=== PATIENT | male | born 1945 | race Caucasian/White ===

== ENCOUNTER 2017-07-16 22:19 | Inpatient (IN) | payer BC, MEDICAID ==
[~2017-07-16] VITALS: Ht 172.7 cm; Wt 68.6 kg
[~2017-07-16 22:19] MED LIST: HYDR-3498 PO
[2017-07-16] MEDS ORDERED: SOD CHLORIDE 0.9% 1,000 ML IV STA (23:43)
[2017-07-16] MEDS ORDERED: ONDANSETRON 4 MG INJ IV STA (23:43)
--- NOTE | 2017-07-16 23:58 | ERD ---
ER Documentation Chief Complaint Chief Complaint c/o having no bm x3 days HPI The patient is a 71-year-old male, presenting to the ER because he is constipated for the last 3 days, abdominal pain for 1 week, decreased appetite, polydipsia, polyuria. He denies fever, chills, neck pain, chest pain, vomiting , dysuria. He is a diabetic however he has not been taking any medication for more than a year. He does not smoke nor drink Past medical history: History of colon cancer, diabetes mellitus Past surgical history: Right colectomy ROS All systems reviewed and are negative except as per history of present illness. Medications Home Meds Active Scripts Hydrocodone Bit-Acetaminophen* ([place]*) 5-325 Mg Tab, 1 TAB PO Q4H Y for PAIN LEVEL 6-10, #20 TAB Prov:RONAL VELASCO 10/22/15 Allergies Allergies: Coded Allergies: No Known Allergy (Unverified , 07/01/15) PMhx/Soc History of Surgery: No Anesthesia Reaction: No Hx Neurological Disorder: No Hx Respiratory Disorders: No Hx Cardiac Disorders: No Hx Psychiatric Problems: No Hx Miscellaneous Medical Probl: No Hx Alcohol Use: No Hx Substance Use: No Hx Tobacco Use: Yes (QUIT 1 1/2 YEAR AGO) Physical Exam Vitals Vital Signs Date Time Temp Pulse Resp B/P Pulse Ox O2 Delivery O2 Flow Rate FiO2 07/16/17 22:30 97.0 107 18 120/81 98 Physical Exam Const: No acute distress. Head: Atraumatic. Eyes: Normal Conjunctiva. ENT: Normal External Ears, Nose and Mouth. Neck: Full range of motion. No meningismus. Resp: Clear to auscultation bilaterally. Cardio: Regular rate and rhythm. Abd: Soft, non distended, normal bowel sounds, minimal vague and diffuse abdominal tenderness, no rigidity, rebound, CVA tenderness Skin: No petechiae or rashes. Back: No midline or flank tenderness. Ext: No cyanosis, or edema. Neur: Awake and alert. No focal deficit Psych: Normal Mood and Affect. Result Diagram: 07/17/17 0000 07/17/17 0000 Results 24 hrs Laboratory Tests Test 07/17/17 00:00 07/17/17 00:01 07/17/17 00:59 07/17/17 01:41 White Blood Count 7.510^3/ul Red Blood Count 5.8110^6/ul Hemoglobin 15.7g/dl Hematocrit 48.4% Mean Corpuscular Volume 83.3fl Mean Corpuscular Hemoglobin 27.0pg Mean Corpuscular Hemoglobin Concent 32.4g/dl Red Cell Distribution Width 12.9% Platelet Count 50861^3/UL Mean Platelet Volume 12.5fl Neutrophils % 63.9% Lymphocytes % 25.2% Monocytes % 8.8% Eosinophils % 0.3% Basophils % 1.5% Nucleated Red Blood Cells % 0.0/100WBC Neutrophils # 4.810^3/ul Lymphocytes # 1.910^3/ul Monocytes # 0.710^3/ul Eosinophils # 0.010^3/ul Basophils # 0.110^3/ul Nucleated Red Blood Cells # 0.010^3/ul Urine Color STRAW Urine Clarity CLEAR Urine pH 5.0 Urine Specific [place] 1.028 Urine Ketones 2+mg/dL Urine Nitrite NEGATIVEmg/dL Urine Bilirubin NEGATIVEmg/dL Urine Urobilinogen NEGATIVEmg/dL Urine Leukocyte Esterase NEGATIVELeu/ul Urine Microscopic RBC 2/HPF Urine Microscopic WBC 1/HPF Urine Hemoglobin 1+mg/dL Urine Glucose 3+mg/dL Urine Total Protein 1+mg/dl Sodium Level 138mmol/L Potassium Level 5.0mmol/L Chloride Level 97mmol/L Carbon Dioxide Level 14mmol/L Anion Gap 32 Blood Urea Nitrogen 19mg/dl Creatinine 1.15mg/dl Glucose Level 605mg/dl Calcium Level 10.0mg/dl Total Bilirubin 0.3mg/dl Direct Bilirubin 0.00mg/dl Indirect Bilirubin 0.3mg/dl Aspartate Amino Transf (AST/SGOT) 37IU/L Alanine Aminotransferase (ALT/SGPT) 70IU/L Alkaline Phosphatase 110IU/L Total Protein 8.6g/dl Albumin 4.7g/dl Globulin 3.90g/dl Albumin/Globulin Ratio 1.20 Lipase 638U/L Prothrombin Time 12.9Sec Prothrombin Time Ratio 1.0 INR International Normalized Ratio 0.97 Activated Partial Thromboplast Time 21.8Sec Blood Gas Specimen Source Blood arterial Arterial Blood Date Drawn 07/17/2017 1:25:58 AM Arterial Blood pH (Temp corrected) 7.244 Arterial Blood pCO2 (Temp correct) 23.9mmhg Arterial Blood pO2 (Temp corrected) 97.4mmHG Arterial Blood HCO3 10.1mmol/L Arterial Blood Base Excess -15.1mmol/L Arterial Blood Oxygen Saturation 97.1mmHG Dillon Test ACCEPTAB Arterial Blood Gas Puncture Site Right Radial Arterial Blood Carboxyhemoglobin 0.3% Arterial Blood Methemoglobin 0.4% Blood Gas A-a O2 Differential 23.7mmHg Oxyhemoglobin Percent 96.4% Total Hemoglobin 16.0g/dl Blood Gas Temperature 37.0C Blood Gas Modality ROOM AIR FiO2 21.0% Blood Gas Critical Value Read Back Real VALADEZ MD Blood Gas Notified Whom MG Blood Gas Notified Time 07/17/2017 1:32:19 AM Bedside Glucose 427mg/dL Test 07/17/17 01:50 07/17/17 03:35 Lactic Acid Level 1.9mmol/L Bedside Glucose 268mg/dL Current Medications Medications (Trade) Dose Ordered Sig/Cari Route PRN Reason Start Time Stop Time Status Last Admin Dose Admin Sodium Chloride (NS) 1,000 ml @ 1,000 mls/hr Q1H STAT IV 07/16/17 23:43 07/17/17 00:42 DC 07/17/17 00:05 Ondansetron HCl 4 mg 4 mg ONCE STAT IV 07/16/17 23:43 07/16/17 23:44 DC 07/17/17 00:14 Sodium Chloride 2,070 ml @ 2,070 mls/hr BOLUS X1 ONCE IV 07/17/17 01:30 07/17/17 02:29 DC 07/17/17 01:36 Insulin Human Regular/Sodium Chloride (Novolin-R/NS) 100 ml @ 6.68 mls/hr DKA PROTOCOL IV 07/17/17 01:30 07/17/17 01:51 Diagnostic Test (Pha) (Accu-Chek) 1 ea Q1H XX 07/17/17 01:30 07/17/17 03:58 IV Flush 10 ml 10 ml STK-MED ONCE .ROUTE 07/17/17 01:20 07/17/17 01:21 DC 07/17/17 02:10 Sodium Chloride (NS) 100 ml @ ud STK-MED ONCE .ROUTE 07/17/17 01:20 07/17/17 01:21 DC 07/17/17 02:10 Iodixanol (Visipaque Locm) 100 ml STK-MED ONCE .ROUTE 07/17/17 01:20 07/17/17 01:21 DC 07/17/17 02:10 Dextrose (D50w Syringe) 50 ml Q15M PRN IV For BS 50 or less 07/17/17 03:00 Dextrose 25 ml 25 ml Q15M PRN IV BS between 50-70 07/17/17 03:00 Sodium Chloride 1,000 ml @ 1,000 mls/hr Q1H IV 07/17/17 02:42 07/17/17 03:41 DC 07/17/17 02:42 Insulin Human Regular/Sodium Chloride (Novolin-R/NS) 100 ml @ 6.68 mls/hr DKA PROTOCOL IV 07/17/17 03:00 Diagnostic Test (Pha) (Accu-Chek) 1 ea Q1H XX 07/17/17 03:00 Miscellaneous Information HYPOGLYCEMIA TREATMENT HYPOGLYCEM PROTOCOL PRN XX Hypoglycemia (BS < 70) 07/17/17 03:00 Sodium Chloride (NS) 1,000 ml @ 125 mls/hr Q8H IV 07/17/17 02:47 Ondansetron HCl (Zofran Inj) 4 mg Q6H PRN IV NAUSEA AND/OR VOMITING 07/17/17 03:00 Acetaminophen (Tylenol Tab) 650 mg Q6H PRN PO PAIN LEVEL 1-3 OR FEVER 07/17/17 03:00 Acetaminophen/ Hydrocodone Bitart ([place] (5/325)) 1 tab Q6H PRN PO PAIN LEVEL 4-6 07/17/17 03:00 Acetaminophen/ Hydrocodone Bitart ([place] (5/325)) 2 tab Q6H PRN PO PAIN LEVEL 7-10 07/17/17 03:00 Morphine Sulfate (morphine) 2 mg Q4H PRN IV PAIN LEVEL 7-10 07/17/17 03:00 Docusate Sodium (Colace) 100 mg Q12H PRN PO CONSTIPATION 07/17/17 03:00 Magnesium Hydroxide (Milk Of Mag) 30 ml DAILY PRN PO CONSTIPATION 07/17/17 03:00 Bisacodyl (Dulcolax Supp) 10 mg DAILY PRN [place] CONSTIPATION 07/17/17 03:00 Famotidine (Pepcid) 20 mg Q12 PO 07/17/17 09:00 Procedures/MDM [place] [address] Radiology Main Line: [phone] DIAGNOSTIC IMAGING REPORT Patient: VISHAL ZAMORA : 1945 Age: 71 Sex: M MR #: [id number] DOS: 07/16/17 2343 Ordering MD: KATE LANCASTER PA-C Location: E/R Room/Bed: PROCEDURE: CT abdomen and pelvis with intravenous contrast. CLINICAL INDICATION: Pain. TECHNIQUE: CT of the abdomen/pelvis was performed utilizing axial images with reconstructions in sagittal and coronal planes after uneventful administration of 100 cc Omnipaque 300. The administered radiation dose is CTDI 8.7 mGy, DLP 551 mGy-cm. One or more of the following dose reduction techniques were used: automated exposure control, adjustment of the mA and/or kV according to patient size and/or use of iterative reconstruction technique. COMPARISON: No pertinent prior examinations were submitted for comparison. FINDINGS: Visualized Chest: The visualized lung bases are clear. Abdomen: The spleen, pancreas, gallbladder,and adrenal glands are unremarkable. The liver is markedly, diffusely decreased in attenuation, compatible with hepatic steatosis. The kidneys are without hydronephrosis. No definite urinary calculi are seen. Prior right hemicolectomy is noted. There is no evidence of bowel obstruction. No intra-abdominal free air is seen. There is no evidence of intra-abdominal adenopathy or free fluid. Pelvis: There is no evidence of pelvic adenopathy or free fluid. The bladder is unremarkable. There are small bilateral fat containing inguinal hernias. The prostate is enlarged, measuring up to 5.9 cm in transverse dimension. Osseous structures: Unremarkable. IMPRESSION: No acute findings. Hepatic steatosis. Small bilateral fat containing inguinal hernias. Enlarged prostate. RPTAT: HIKT .Jose Haque MD, MD Date Time Electronically viewed and signed by .Jose Haque MD, on 07/17/2017 03:00 .T/ CC: KATE LANCASTER PA-C [place] [address] Radiology Main Line: [phone] DIAGNOSTIC IMAGING REPORT Patient: VISHAL ZAMORA : 1945 Age: 71 Sex: M MR #: [id number] DOS: 07/17/17 0102 Ordering MD: DILIA VALADEZ MD Location: E/R Room/Bed: PROCEDURE: Chest. CLINICAL INDICATION: Chest pain. TECHNIQUE: Single frontal view of the chest was obtained. COMPARISON: 10/11/2015. FINDINGS: The cardiac silhouette is within normal limits. The aortic arch is calcified. There is no focal consolidation, vascular congestion or pleural effusion. There is no pneumothorax. IMPRESSION: No evidence for active cardiopulmonary disease. Aortic atherosclerosis. .Devonte Patterson MD, MD Date Time Electronically viewed and signed by .Devonte Patterson MD, MD on 07/17/2017 03:24 .T/ CC: DILIA VALADEZ MD EKG: Read by emergency physician Rate/Rhythm: Normal Sinus Rhythm 93 beats/min QRS, ST, T-waves: No ST elevation, no T inversion, SA Impression: Abnormal EKG abg ph 7.24, pco2 24, po2 97 on 21% MEDICAL MAKING DECISION: The patient is a 71-year-old male, presenting with acute DKA, acute pancreatitis. He was treated with normosaline 30 mL/kg IV, Insulin drip 0.1 U/kg/h The differential diagnoses considered include but are not limited to cholelithiasis, cholecystitis, cystitis, pancreatitis, hepatitis, gastritis, peptic ulcer disease, gastric ulcer, appendicitis, diverticulitis, cholangitis, choledocholithiasis, partial small bowel obstruction. Critical Care: Time: 35 minutes excluding all billable procedures. Treatments/Evaluations: Close monitoring and treatment of unstable vital signs, cardiorespiratory, and neurologic status, while maintaining tight balance of fluid, respiratory, and cardiac interventions. Departure Diagnosis: Primary Impression: DKA (diabetic ketoacidoses) Additional Impression: Pancreatitis Condition: Critical Comments I discussed the findings with the patient. I discussed the patient with his physician Dr. Montano at 2:10 am who was made aware of the lab, the treatment, the patient condition. The patient is admitted to ICU Disclaimer: Inadvertent spelling and grammatical errors are likely due to EHR/ dictation software use and do not reflect on the overall quality of patient care. Also, please note that the electronic time recorded on this note does not necessarily reflect the actual time of the patient encounter. DILIA VALADEZ MD Jul 16, 2017 23:58
--- NOTE | 2017-07-16 23:58 | ERD ---
ER Documentation Chief Complaint Chief Complaint c/o having no bm x3 days HPI The patient is a 71-year-old male, presenting to the ER because he is constipated for the last 3 days, abdominal pain for 1 week, decreased appetite, polydipsia, polyuria. He denies fever, chills, neck pain, chest pain, vomiting , dysuria. He is a diabetic however he has not been taking any medication for more than a year. He does not smoke nor drink Past medical history: History of colon cancer, diabetes mellitus Past surgical history: Right colectomy ROS All systems reviewed and are negative except as per history of present illness. Medications Home Meds Active Scripts Hydrocodone Bit-Acetaminophen* ([place]*) 5-325 Mg Tab, 1 TAB PO Q4H Y for PAIN LEVEL 6-10, #20 TAB Prov:RONAL VELASCO 10/22/15 Allergies Allergies: Coded Allergies: No Known Allergy (Unverified , 07/01/15) PMhx/Soc History of Surgery: No Anesthesia Reaction: No Hx Neurological Disorder: No Hx Respiratory Disorders: No Hx Cardiac Disorders: No Hx Psychiatric Problems: No Hx Miscellaneous Medical Probl: No Hx Alcohol Use: No Hx Substance Use: No Hx Tobacco Use: Yes (QUIT 1 1/2 YEAR AGO) Physical Exam Vitals Vital Signs Date Time Temp Pulse Resp B/P Pulse Ox O2 Delivery O2 Flow Rate FiO2 07/16/17 22:30 97.0 107 18 120/81 98 Physical Exam Const: No acute distress. Head: Atraumatic. Eyes: Normal Conjunctiva. ENT: Normal External Ears, Nose and Mouth. Neck: Full range of motion. No meningismus. Resp: Clear to auscultation bilaterally. Cardio: Regular rate and rhythm. Abd: Soft, non distended, normal bowel sounds, minimal vague and diffuse abdominal tenderness, no rigidity, rebound, CVA tenderness Skin: No petechiae or rashes. Back: No midline or flank tenderness. Ext: No cyanosis, or edema. Neur: Awake and alert. No focal deficit Psych: Normal Mood and Affect. Result Diagram: 07/17/17 0000 07/17/17 0000 Results 24 hrs Laboratory Tests Test 07/17/17 00:00 07/17/17 00:01 07/17/17 00:59 07/17/17 01:41 White Blood Count 7.510^3/ul Red Blood Count 5.8110^6/ul Hemoglobin 15.7g/dl Hematocrit 48.4% Mean Corpuscular Volume 83.3fl Mean Corpuscular Hemoglobin 27.0pg Mean Corpuscular Hemoglobin Concent 32.4g/dl Red Cell Distribution Width 12.9% Platelet Count 08973^3/UL Mean Platelet Volume 12.5fl Neutrophils % 63.9% Lymphocytes % 25.2% Monocytes % 8.8% Eosinophils % 0.3% Basophils % 1.5% Nucleated Red Blood Cells % 0.0/100WBC Neutrophils # 4.810^3/ul Lymphocytes # 1.910^3/ul Monocytes # 0.710^3/ul Eosinophils # 0.010^3/ul Basophils # 0.110^3/ul Nucleated Red Blood Cells # 0.010^3/ul Urine Color STRAW Urine Clarity CLEAR Urine pH 5.0 Urine Specific [place] 1.028 Urine Ketones 2+mg/dL Urine Nitrite NEGATIVEmg/dL Urine Bilirubin NEGATIVEmg/dL Urine Urobilinogen NEGATIVEmg/dL Urine Leukocyte Esterase NEGATIVELeu/ul Urine Microscopic RBC 2/HPF Urine Microscopic WBC 1/HPF Urine Hemoglobin 1+mg/dL Urine Glucose 3+mg/dL Urine Total Protein 1+mg/dl Sodium Level 138mmol/L Potassium Level 5.0mmol/L Chloride Level 97mmol/L Carbon Dioxide Level 14mmol/L Anion Gap 32 Blood Urea Nitrogen 19mg/dl Creatinine 1.15mg/dl Glucose Level 605mg/dl Calcium Level 10.0mg/dl Total Bilirubin 0.3mg/dl Direct Bilirubin 0.00mg/dl Indirect Bilirubin 0.3mg/dl Aspartate Amino Transf (AST/SGOT) 37IU/L Alanine Aminotransferase (ALT/SGPT) 70IU/L Alkaline Phosphatase 110IU/L Total Protein 8.6g/dl Albumin 4.7g/dl Globulin 3.90g/dl Albumin/Globulin Ratio 1.20 Lipase 638U/L Prothrombin Time 12.9Sec Prothrombin Time Ratio 1.0 INR International Normalized Ratio 0.97 Activated Partial Thromboplast Time 21.8Sec Blood Gas Specimen Source Blood arterial Arterial Blood Date Drawn 07/17/2017 1:25:58 AM Arterial Blood pH (Temp corrected) 7.244 Arterial Blood pCO2 (Temp correct) 23.9mmhg Arterial Blood pO2 (Temp corrected) 97.4mmHG Arterial Blood HCO3 10.1mmol/L Arterial Blood Base Excess -15.1mmol/L Arterial Blood Oxygen Saturation 97.1mmHG Dillon Test ACCEPTAB Arterial Blood Gas Puncture Site Right Radial Arterial Blood Carboxyhemoglobin 0.3% Arterial Blood Methemoglobin 0.4% Blood Gas A-a O2 Differential 23.7mmHg Oxyhemoglobin Percent 96.4% Total Hemoglobin 16.0g/dl Blood Gas Temperature 37.0C Blood Gas Modality ROOM AIR FiO2 21.0% Blood Gas Critical Value Read Back Real VALADEZ MD Blood Gas Notified Whom MG Blood Gas Notified Time 07/17/2017 1:32:19 AM Bedside Glucose 427mg/dL Test 07/17/17 01:50 07/17/17 03:35 Lactic Acid Level 1.9mmol/L Bedside Glucose 268mg/dL Current Medications Medications (Trade) Dose Ordered Sig/Cari Route PRN Reason Start Time Stop Time Status Last Admin Dose Admin Sodium Chloride (NS) 1,000 ml @ 1,000 mls/hr Q1H STAT IV 07/16/17 23:43 07/17/17 00:42 DC 07/17/17 00:05 Ondansetron HCl 4 mg 4 mg ONCE STAT IV 07/16/17 23:43 07/16/17 23:44 DC 07/17/17 00:14 Sodium Chloride 2,070 ml @ 2,070 mls/hr BOLUS X1 ONCE IV 07/17/17 01:30 07/17/17 02:29 DC 07/17/17 01:36 Insulin Human Regular/Sodium Chloride (Novolin-R/NS) 100 ml @ 6.68 mls/hr DKA PROTOCOL IV 07/17/17 01:30 07/17/17 01:51 Diagnostic Test (Pha) (Accu-Chek) 1 ea Q1H XX 07/17/17 01:30 07/17/17 03:58 IV Flush 10 ml 10 ml STK-MED ONCE .ROUTE 07/17/17 01:20 07/17/17 01:21 DC 07/17/17 02:10 Sodium Chloride (NS) 100 ml @ ud STK-MED ONCE .ROUTE 07/17/17 01:20 07/17/17 01:21 DC 07/17/17 02:10 Iodixanol (Visipaque Locm) 100 ml STK-MED ONCE .ROUTE 07/17/17 01:20 07/17/17 01:21 DC 07/17/17 02:10 Dextrose (D50w Syringe) 50 ml Q15M PRN IV For BS 50 or less 07/17/17 03:00 Dextrose 25 ml 25 ml Q15M PRN IV BS between 50-70 07/17/17 03:00 Sodium Chloride 1,000 ml @ 1,000 mls/hr Q1H IV 07/17/17 02:42 07/17/17 03:41 DC 07/17/17 02:42 Insulin Human Regular/Sodium Chloride (Novolin-R/NS) 100 ml @ 6.68 mls/hr DKA PROTOCOL IV 07/17/17 03:00 Diagnostic Test (Pha) (Accu-Chek) 1 ea Q1H XX 07/17/17 03:00 Miscellaneous Information HYPOGLYCEMIA TREATMENT HYPOGLYCEM PROTOCOL PRN XX Hypoglycemia (BS < 70) 07/17/17 03:00 Sodium Chloride (NS) 1,000 ml @ 125 mls/hr Q8H IV 07/17/17 02:47 Ondansetron HCl (Zofran Inj) 4 mg Q6H PRN IV NAUSEA AND/OR VOMITING 07/17/17 03:00 Acetaminophen (Tylenol Tab) 650 mg Q6H PRN PO PAIN LEVEL 1-3 OR FEVER 07/17/17 03:00 Acetaminophen/ Hydrocodone Bitart ([place] (5/325)) 1 tab Q6H PRN PO PAIN LEVEL 4-6 07/17/17 03:00 Acetaminophen/ Hydrocodone Bitart ([place] (5/325)) 2 tab Q6H PRN PO PAIN LEVEL 7-10 07/17/17 03:00 Morphine Sulfate (morphine) 2 mg Q4H PRN IV PAIN LEVEL 7-10 07/17/17 03:00 Docusate Sodium (Colace) 100 mg Q12H PRN PO CONSTIPATION 07/17/17 03:00 Magnesium Hydroxide (Milk Of Mag) 30 ml DAILY PRN PO CONSTIPATION 07/17/17 03:00 Bisacodyl (Dulcolax Supp) 10 mg DAILY PRN [place] CONSTIPATION 07/17/17 03:00 Famotidine (Pepcid) 20 mg Q12 PO 07/17/17 09:00 Procedures/MDM [place] [address] Radiology Main Line: [phone] DIAGNOSTIC IMAGING REPORT Patient: VISHAL ZAMORA : 1945 Age: 71 Sex: M MR #: [id number] DOS: 07/16/17 2343 Ordering MD: KATE LANCASTER PA-C Location: E/R Room/Bed: PROCEDURE: CT abdomen and pelvis with intravenous contrast. CLINICAL INDICATION: Pain. TECHNIQUE: CT of the abdomen/pelvis was performed utilizing axial images with reconstructions in sagittal and coronal planes after uneventful administration of 100 cc Omnipaque 300. The administered radiation dose is CTDI 8.7 mGy, DLP 551 mGy-cm. One or more of the following dose reduction techniques were used: automated exposure control, adjustment of the mA and/or kV according to patient size and/or use of iterative reconstruction technique. COMPARISON: No pertinent prior examinations were submitted for comparison. FINDINGS: Visualized Chest: The visualized lung bases are clear. Abdomen: The spleen, pancreas, gallbladder,and adrenal glands are unremarkable. The liver is markedly, diffusely decreased in attenuation, compatible with hepatic steatosis. The kidneys are without hydronephrosis. No definite urinary calculi are seen. Prior right hemicolectomy is noted. There is no evidence of bowel obstruction. No intra-abdominal free air is seen. There is no evidence of intra-abdominal adenopathy or free fluid. Pelvis: There is no evidence of pelvic adenopathy or free fluid. The bladder is unremarkable. There are small bilateral fat containing inguinal hernias. The prostate is enlarged, measuring up to 5.9 cm in transverse dimension. Osseous structures: Unremarkable. IMPRESSION: No acute findings. Hepatic steatosis. Small bilateral fat containing inguinal hernias. Enlarged prostate. RPTAT: HIKT .Jose Hauqe MD, MD Date Time Electronically viewed and signed by .Jose Haque MD, on 07/17/2017 03:00 .T/ CC: KATE LANCASTER PA-C [place] [address] Radiology Main Line: [phone] DIAGNOSTIC IMAGING REPORT Patient: VISHAL ZAMORA : 1945 Age: 71 Sex: M MR #: [id number] DOS: 07/17/17 0102 Ordering MD: DILIA VALADEZ MD Location: E/R Room/Bed: PROCEDURE: Chest. CLINICAL INDICATION: Chest pain. TECHNIQUE: Single frontal view of the chest was obtained. COMPARISON: 10/11/2015. FINDINGS: The cardiac silhouette is within normal limits. The aortic arch is calcified. There is no focal consolidation, vascular congestion or pleural effusion. There is no pneumothorax. IMPRESSION: No evidence for active cardiopulmonary disease. Aortic atherosclerosis. .Devonte Patterson MD, MD Date Time Electronically viewed and signed by .Devonte Patterson MD, MD on 07/17/2017 03:24 .T/ CC: DILIA VALADEZ MD EKG: Read by emergency physician Rate/Rhythm: Normal Sinus Rhythm 93 beats/min QRS, ST, T-waves: No ST elevation, no T inversion, SA Impression: Abnormal EKG abg ph 7.24, pco2 24, po2 97 on 21% MEDICAL MAKING DECISION: The patient is a 71-year-old male, presenting with acute DKA, acute pancreatitis. He was treated with normosaline 30 mL/kg IV, Insulin drip 0.1 U/kg/h The differential diagnoses considered include but are not limited to cholelithiasis, cholecystitis, cystitis, pancreatitis, hepatitis, gastritis, peptic ulcer disease, gastric ulcer, appendicitis, diverticulitis, cholangitis, choledocholithiasis, partial small bowel obstruction. Critical Care: Time: 35 minutes excluding all billable procedures. Treatments/Evaluations: Close monitoring and treatment of unstable vital signs, cardiorespiratory, and neurologic status, while maintaining tight balance of fluid, respiratory, and cardiac interventions. Departure Diagnosis: Primary Impression: DKA (diabetic ketoacidoses) Additional Impression: Pancreatitis Condition: Critical Comments I discussed the findings with the patient. I discussed the patient with his physician Dr. Montano at 2:10 am who was made aware of the lab, the treatment, the patient condition. The patient is admitted to ICU Disclaimer: Inadvertent spelling and grammatical errors are likely due to EHR/ dictation software use and do not reflect on the overall quality of patient care. Also, please note that the electronic time recorded on this note does not necessarily reflect the actual time of the patient encounter. DILIA VALADEZ MD Jul 16, 2017 23:58
--- NOTE | 2017-07-16 23:58 | ERD ---
ER Documentation Chief Complaint Chief Complaint c/o having no bm x3 days HPI The patient is a 71-year-old male, presenting to the ER because he is constipated for the last 3 days, abdominal pain for 1 week, decreased appetite, polydipsia, polyuria. He denies fever, chills, neck pain, chest pain, vomiting , dysuria. He is a diabetic however he has not been taking any medication for more than a year. He does not smoke nor drink Past medical history: History of colon cancer, diabetes mellitus Past surgical history: Right colectomy ROS All systems reviewed and are negative except as per history of present illness. Medications Home Meds Active Scripts Hydrocodone Bit-Acetaminophen* ([place]*) 5-325 Mg Tab, 1 TAB PO Q4H Y for PAIN LEVEL 6-10, #20 TAB Prov:RONAL VELASCO 10/22/15 Allergies Allergies: Coded Allergies: No Known Allergy (Unverified , 07/01/15) PMhx/Soc History of Surgery: No Anesthesia Reaction: No Hx Neurological Disorder: No Hx Respiratory Disorders: No Hx Cardiac Disorders: No Hx Psychiatric Problems: No Hx Miscellaneous Medical Probl: No Hx Alcohol Use: No Hx Substance Use: No Hx Tobacco Use: Yes (QUIT 1 1/2 YEAR AGO) Physical Exam Vitals Vital Signs Date Time Temp Pulse Resp B/P Pulse Ox O2 Delivery O2 Flow Rate FiO2 07/16/17 22:30 97.0 107 18 120/81 98 Physical Exam Const: No acute distress. Head: Atraumatic. Eyes: Normal Conjunctiva. ENT: Normal External Ears, Nose and Mouth. Neck: Full range of motion. No meningismus. Resp: Clear to auscultation bilaterally. Cardio: Regular rate and rhythm. Abd: Soft, non distended, normal bowel sounds, minimal vague and diffuse abdominal tenderness, no rigidity, rebound, CVA tenderness Skin: No petechiae or rashes. Back: No midline or flank tenderness. Ext: No cyanosis, or edema. Neur: Awake and alert. No focal deficit Psych: Normal Mood and Affect. Result Diagram: 07/17/17 0000 07/17/17 0000 Results 24 hrs Laboratory Tests Test 07/17/17 00:00 07/17/17 00:01 07/17/17 00:59 07/17/17 01:41 White Blood Count 7.510^3/ul Red Blood Count 5.8110^6/ul Hemoglobin 15.7g/dl Hematocrit 48.4% Mean Corpuscular Volume 83.3fl Mean Corpuscular Hemoglobin 27.0pg Mean Corpuscular Hemoglobin Concent 32.4g/dl Red Cell Distribution Width 12.9% Platelet Count 48445^3/UL Mean Platelet Volume 12.5fl Neutrophils % 63.9% Lymphocytes % 25.2% Monocytes % 8.8% Eosinophils % 0.3% Basophils % 1.5% Nucleated Red Blood Cells % 0.0/100WBC Neutrophils # 4.810^3/ul Lymphocytes # 1.910^3/ul Monocytes # 0.710^3/ul Eosinophils # 0.010^3/ul Basophils # 0.110^3/ul Nucleated Red Blood Cells # 0.010^3/ul Urine Color STRAW Urine Clarity CLEAR Urine pH 5.0 Urine Specific [place] 1.028 Urine Ketones 2+mg/dL Urine Nitrite NEGATIVEmg/dL Urine Bilirubin NEGATIVEmg/dL Urine Urobilinogen NEGATIVEmg/dL Urine Leukocyte Esterase NEGATIVELeu/ul Urine Microscopic RBC 2/HPF Urine Microscopic WBC 1/HPF Urine Hemoglobin 1+mg/dL Urine Glucose 3+mg/dL Urine Total Protein 1+mg/dl Sodium Level 138mmol/L Potassium Level 5.0mmol/L Chloride Level 97mmol/L Carbon Dioxide Level 14mmol/L Anion Gap 32 Blood Urea Nitrogen 19mg/dl Creatinine 1.15mg/dl Glucose Level 605mg/dl Calcium Level 10.0mg/dl Total Bilirubin 0.3mg/dl Direct Bilirubin 0.00mg/dl Indirect Bilirubin 0.3mg/dl Aspartate Amino Transf (AST/SGOT) 37IU/L Alanine Aminotransferase (ALT/SGPT) 70IU/L Alkaline Phosphatase 110IU/L Total Protein 8.6g/dl Albumin 4.7g/dl Globulin 3.90g/dl Albumin/Globulin Ratio 1.20 Lipase 638U/L Prothrombin Time 12.9Sec Prothrombin Time Ratio 1.0 INR International Normalized Ratio 0.97 Activated Partial Thromboplast Time 21.8Sec Blood Gas Specimen Source Blood arterial Arterial Blood Date Drawn 07/17/2017 1:25:58 AM Arterial Blood pH (Temp corrected) 7.244 Arterial Blood pCO2 (Temp correct) 23.9mmhg Arterial Blood pO2 (Temp corrected) 97.4mmHG Arterial Blood HCO3 10.1mmol/L Arterial Blood Base Excess -15.1mmol/L Arterial Blood Oxygen Saturation 97.1mmHG Dillon Test ACCEPTAB Arterial Blood Gas Puncture Site Right Radial Arterial Blood Carboxyhemoglobin 0.3% Arterial Blood Methemoglobin 0.4% Blood Gas A-a O2 Differential 23.7mmHg Oxyhemoglobin Percent 96.4% Total Hemoglobin 16.0g/dl Blood Gas Temperature 37.0C Blood Gas Modality ROOM AIR FiO2 21.0% Blood Gas Critical Value Read Back Real VALADEZ MD Blood Gas Notified Whom MG Blood Gas Notified Time 07/17/2017 1:32:19 AM Bedside Glucose 427mg/dL Test 07/17/17 01:50 07/17/17 03:35 Lactic Acid Level 1.9mmol/L Bedside Glucose 268mg/dL Current Medications Medications (Trade) Dose Ordered Sig/Cari Route PRN Reason Start Time Stop Time Status Last Admin Dose Admin Sodium Chloride (NS) 1,000 ml @ 1,000 mls/hr Q1H STAT IV 07/16/17 23:43 07/17/17 00:42 DC 07/17/17 00:05 Ondansetron HCl 4 mg 4 mg ONCE STAT IV 07/16/17 23:43 07/16/17 23:44 DC 07/17/17 00:14 Sodium Chloride 2,070 ml @ 2,070 mls/hr BOLUS X1 ONCE IV 07/17/17 01:30 07/17/17 02:29 DC 07/17/17 01:36 Insulin Human Regular/Sodium Chloride (Novolin-R/NS) 100 ml @ 6.68 mls/hr DKA PROTOCOL IV 07/17/17 01:30 07/17/17 01:51 Diagnostic Test (Pha) (Accu-Chek) 1 ea Q1H XX 07/17/17 01:30 07/17/17 03:58 IV Flush 10 ml 10 ml STK-MED ONCE .ROUTE 07/17/17 01:20 07/17/17 01:21 DC 07/17/17 02:10 Sodium Chloride (NS) 100 ml @ ud STK-MED ONCE .ROUTE 07/17/17 01:20 07/17/17 01:21 DC 07/17/17 02:10 Iodixanol (Visipaque Locm) 100 ml STK-MED ONCE .ROUTE 07/17/17 01:20 07/17/17 01:21 DC 07/17/17 02:10 Dextrose (D50w Syringe) 50 ml Q15M PRN IV For BS 50 or less 07/17/17 03:00 Dextrose 25 ml 25 ml Q15M PRN IV BS between 50-70 07/17/17 03:00 Sodium Chloride 1,000 ml @ 1,000 mls/hr Q1H IV 07/17/17 02:42 07/17/17 03:41 DC 07/17/17 02:42 Insulin Human Regular/Sodium Chloride (Novolin-R/NS) 100 ml @ 6.68 mls/hr DKA PROTOCOL IV 07/17/17 03:00 Diagnostic Test (Pha) (Accu-Chek) 1 ea Q1H XX 07/17/17 03:00 Miscellaneous Information HYPOGLYCEMIA TREATMENT HYPOGLYCEM PROTOCOL PRN XX Hypoglycemia (BS < 70) 07/17/17 03:00 Sodium Chloride (NS) 1,000 ml @ 125 mls/hr Q8H IV 07/17/17 02:47 Ondansetron HCl (Zofran Inj) 4 mg Q6H PRN IV NAUSEA AND/OR VOMITING 07/17/17 03:00 Acetaminophen (Tylenol Tab) 650 mg Q6H PRN PO PAIN LEVEL 1-3 OR FEVER 07/17/17 03:00 Acetaminophen/ Hydrocodone Bitart ([place] (5/325)) 1 tab Q6H PRN PO PAIN LEVEL 4-6 07/17/17 03:00 Acetaminophen/ Hydrocodone Bitart ([place] (5/325)) 2 tab Q6H PRN PO PAIN LEVEL 7-10 07/17/17 03:00 Morphine Sulfate (morphine) 2 mg Q4H PRN IV PAIN LEVEL 7-10 07/17/17 03:00 Docusate Sodium (Colace) 100 mg Q12H PRN PO CONSTIPATION 07/17/17 03:00 Magnesium Hydroxide (Milk Of Mag) 30 ml DAILY PRN PO CONSTIPATION 07/17/17 03:00 Bisacodyl (Dulcolax Supp) 10 mg DAILY PRN [place] CONSTIPATION 07/17/17 03:00 Famotidine (Pepcid) 20 mg Q12 PO 07/17/17 09:00 Procedures/MDM [place] [address] Radiology Main Line: [phone] DIAGNOSTIC IMAGING REPORT Patient: VISHAL ZAMORA : 1945 Age: 71 Sex: M MR #: [id number] DOS: 07/16/17 2343 Ordering MD: KATE LANCASTER PA-C Location: E/R Room/Bed: PROCEDURE: CT abdomen and pelvis with intravenous contrast. CLINICAL INDICATION: Pain. TECHNIQUE: CT of the abdomen/pelvis was performed utilizing axial images with reconstructions in sagittal and coronal planes after uneventful administration of 100 cc Omnipaque 300. The administered radiation dose is CTDI 8.7 mGy, DLP 551 mGy-cm. One or more of the following dose reduction techniques were used: automated exposure control, adjustment of the mA and/or kV according to patient size and/or use of iterative reconstruction technique. COMPARISON: No pertinent prior examinations were submitted for comparison. FINDINGS: Visualized Chest: The visualized lung bases are clear. Abdomen: The spleen, pancreas, gallbladder,and adrenal glands are unremarkable. The liver is markedly, diffusely decreased in attenuation, compatible with hepatic steatosis. The kidneys are without hydronephrosis. No definite urinary calculi are seen. Prior right hemicolectomy is noted. There is no evidence of bowel obstruction. No intra-abdominal free air is seen. There is no evidence of intra-abdominal adenopathy or free fluid. Pelvis: There is no evidence of pelvic adenopathy or free fluid. The bladder is unremarkable. There are small bilateral fat containing inguinal hernias. The prostate is enlarged, measuring up to 5.9 cm in transverse dimension. Osseous structures: Unremarkable. IMPRESSION: No acute findings. Hepatic steatosis. Small bilateral fat containing inguinal hernias. Enlarged prostate. RPTAT: HIKT .Jose Haque MD, MD Date Time Electronically viewed and signed by .Jose Haque MD, on 07/17/2017 03:00 .T/ CC: KATE LANCASTER PA-C [place] [address] Radiology Main Line: [phone] DIAGNOSTIC IMAGING REPORT Patient: VISHAL ZAMORA : 1945 Age: 71 Sex: M MR #: [id number] DOS: 07/17/17 0102 Ordering MD: DILIA VALADEZ MD Location: E/R Room/Bed: PROCEDURE: Chest. CLINICAL INDICATION: Chest pain. TECHNIQUE: Single frontal view of the chest was obtained. COMPARISON: 10/11/2015. FINDINGS: The cardiac silhouette is within normal limits. The aortic arch is calcified. There is no focal consolidation, vascular congestion or pleural effusion. There is no pneumothorax. IMPRESSION: No evidence for active cardiopulmonary disease. Aortic atherosclerosis. .Devonte Patterson MD, MD Date Time Electronically viewed and signed by .Devonte Patterson MD, MD on 07/17/2017 03:24 .T/ CC: DILIA VALADEZ MD EKG: Read by emergency physician Rate/Rhythm: Normal Sinus Rhythm 93 beats/min QRS, ST, T-waves: No ST elevation, no T inversion, SA Impression: Abnormal EKG abg ph 7.24, pco2 24, po2 97 on 21% MEDICAL MAKING DECISION: The patient is a 71-year-old male, presenting with acute DKA, acute pancreatitis. He was treated with normosaline 30 mL/kg IV, Insulin drip 0.1 U/kg/h The differential diagnoses considered include but are not limited to cholelithiasis, cholecystitis, cystitis, pancreatitis, hepatitis, gastritis, peptic ulcer disease, gastric ulcer, appendicitis, diverticulitis, cholangitis, choledocholithiasis, partial small bowel obstruction. Critical Care: Time: 35 minutes excluding all billable procedures. Treatments/Evaluations: Close monitoring and treatment of unstable vital signs, cardiorespiratory, and neurologic status, while maintaining tight balance of fluid, respiratory, and cardiac interventions. Departure Diagnosis: Primary Impression: DKA (diabetic ketoacidoses) Additional Impression: Pancreatitis Condition: Critical Comments I discussed the findings with the patient. I discussed the patient with his physician Dr. Montano at 2:10 am who was made aware of the lab, the treatment, the patient condition. The patient is admitted to ICU Disclaimer: Inadvertent spelling and grammatical errors are likely due to EHR/ dictation software use and do not reflect on the overall quality of patient care. Also, please note that the electronic time recorded on this note does not necessarily reflect the actual time of the patient encounter. DILIA VALADEZ MD Jul 16, 2017 23:58
[2017-07-17] VITALS (16 sets, daily range): BP systolic 95–113; BP diastolic 51–63; PULSE 61–83; RESP 11–23; TEMP 97; Ht 172.7 cm; Wt 68.6 kg
[2017-07-17] MEDS ORDERED: SOD CHLORIDE 0.9% 100 ML ONE (01:20)
[2017-07-17] MEDS ORDERED: IODIXANOL LOCM 100 ML BTL ONE (01:20)
[2017-07-17] MEDS ORDERED: INSULIN HUMAN REGULAR 100 UNIT in SOD CHLORIDE 0.9% 99 ML IV SCH ×6 (01:30→05:00)
[2017-07-17] MEDS: ACCU-CHEK XX SCH ×16 (01:30→13:00)
[2017-07-17] MEDS ORDERED: SOD CHLORIDE 0.9% 2,070 ML IV ONE (01:30)
[2017-07-17] MEDS ORDERED: SOD CHLORIDE 0.9% 1,000 ML IV SCH (02:42)
[2017-07-17] MEDS: SOD CHLORIDE 0.9% 1,000 ML IV SCH ×4 (02:47→22:34)
[2017-07-17] MEDS ORDERED: ONDANSETRON 4 MG INJ IV PRN (03:00)
[2017-07-17] MEDS ORDERED: MAGNESIUM HYDROXIDE 30ML CUP PO PRN (03:00)
[2017-07-17] MEDS ORDERED: HYDROCODONE/APAP (5/325) TAB PO PRN ×2 (03:00)
[2017-07-17] MEDS ORDERED: ACETAMINOPHEN 325 MG TAB PO PRN (03:00)
[2017-07-17] MEDS ORDERED: DOCUSATE SODIUM 100 MG CAP PO PRN (03:00)
[2017-07-17] MEDS ORDERED: DEXTROSE 50% 50 ML SYRINGE IV PRN ×8 (03:00→12:00)
[2017-07-17] MEDS ORDERED: BISACODYL 10 MG SUPP PR PRN (03:00)
[2017-07-17] MEDS ORDERED: morphine 2 MG INJ IV PRN (03:00)
--- NOTE | 2017-07-17 03:00 | RADRPT ---
PROCEDURE: CT abdomen and pelvis with intravenous contrast. CLINICAL INDICATION: Pain. TECHNIQUE: CT of the abdomen/pelvis was performed utilizing axial images with reconstructions in s agittal and coronal planes after uneventful administration of 100 cc Omnipaque 300. The administered radiation dose is CTDI 8.7 mGy, DLP 551 mGy-cm. One or more of the following dose reduction techniq ues were used: automated exposure control, adjustment of the mA and/or kV according to patient size and/or use of iterative reconstruction technique. COMPARISON: No pertinent prior examinations were submitted for comparison. FINDINGS: Visualized Chest: The visualized lung bases are clear. Abdomen: The spleen, pancreas, gallbladder,and adrenal glands are unremarkable. The liver is markedly, dif fusely decreased in attenuation, compatible with hepatic steatosis. The kidneys are without hydronephrosis. No definite urinary calculi are seen. Prior right hemicolectomy is noted. There is no evidence of bowel obstruction. No intra-abdominal f ree air is seen. There is no evidence of intra-abdominal adenopathy or free fluid. Pelvis: There is no evidence of pelvic adenopathy or free fluid. The bladder is unremarkable. There are sma ll bilateral fat containing inguinal hernias. The prostate is enlarged, measuring up to 5.9 cm in tr ansverse dimension. Osseous structures: Unremarkable. IMPRESSION: No acute findings. Hepatic steatosis. Small bilateral fat containing inguinal hernias. Enlarged prostate. RPTAT: HIKT .Jose Haque MD, Date Time Electronically viewed and signed by .Jose Haque MD, on 07/17/2017 03:00 .T/
--- NOTE | 2017-07-17 03:24 | RADRPT ---
PROCEDURE: Chest. CLINICAL INDICATION: Chest pain. TECHNIQUE: Single frontal view of the chest was obtained. COMPARISON: 10/11/2015. FINDINGS: The cardiac silhouette is within normal limits. The aortic arch is calcified. There is no focal co nsolidation, vascular congestion or pleural effusion. There is no pneumothorax. IMPRESSION: No evidence for active cardiopulmonary disease. Aortic atherosclerosis. .Devonte Patterson MD, MD Date Time Electronically viewed and signed by .Devonte Patterson MD, on 07/17/2017 03:24 .T/
[2017-07-17] MEDS ORDERED: ACCU-CHEK XX SCH (05:00)
[2017-07-17] MEDS: FAMOTIDINE 20 MG TAB PO SCH ×2 (10:22→20:50)
[2017-07-17] MEDS ORDERED: GLUCAGON 1 MG INJ IM PRN (12:00)
[2017-07-17] MEDS ORDERED: GLUCOSE GEL 15 GRAM TUBE BUCCAL PRN (12:00)
[2017-07-17] MEDS ORDERED: GLUCOSE GEL 15 GRAM TUBE PO PRN ×2 (12:00)
--- NOTE | 2017-07-17 12:24 | HP ---
Date/Time of Note Date/Time of Note DATE: 07/17/17 TIME: 11:41 Assessment/Plan VTE Prophylaxis VTE Prophylaxis Intervention: SCD's Lines/Catheters IV Catheter Type (from [facility]): Saline Lock Assessment/Plan Assessment/Plan 71-year-old male with: 1. Diabetic ketoacidosis, new diagnosis of diabetes mellitus, hemoglobin A1c out of range, patient has closed his anion gap, will transition to sub- cutaneous insulin with Lantus 14 units subcu daily along with 5 units of NovoLog q. before meals and mild sliding scale insulin. Diabetic education ordered We will start ADA diet Discontinue insulin drip in couple hours after Lantus given if electrolytes and blood sugar stable For now will continue D5 normal saline until patient has adequate p.o. intake 2. Elevated lipase, unclear if it is just in setting of DKA, will repeat lipase today. No signs of pancreatitis on CAT scan of the abdomen Prophylaxis: SCDs for DVT prophylaxis, Pepcid for GI prophylaxis Disposition: Transitioned to subcutaneous insulin, transfer to medical surgical bed later today if patient remains stable HPI/ROS Admit Date/Time Admit Date/Time Jul 17, 2017 at 08:07 Hx of Present Illness Chief complaint: Polyuria, polydipsia History of presenting illness: This is a 71-year-old male with no past medical history except for removal of a colon mass 2 years ago that turned out to be benign who presented to the emergency department with reported polyuria and polydipsia. Patient reports that for the past 2 weeks she has been drinking a lot of water and urinating a lot. He was never diagnosed with diabetes mellitus previously but does not seem to follow-up with physicians that much. He denies any fevers , chills, chest pain, constipation, diarrhea. He reports nausea and vomiting yesterday, also reports epigastric pain severe yesterday. In the emergency department he was found to be hyperglycemic and in diabetic ketoacidosis, pH 7.2 , bicarb of 14 with an anion gap of 32. CAT scan of the abdomen and pelvis and chest x-ray are negative for any acute findings. Cardiac enzymes negative. Patient remained hemodynamically stable but obviously in DKA, he was started on insulin drip and DKA protocol. He was admitted to the intensive care unit. As of this morning he closed his gap, he will be transitioned to subcutaneous insulin, will start his diet, he is hungry and has much less abdominal pain. Lipase was slightly elevated yesterday, will follow up on lipase level today. Once patient off the insulin drip completely and stable he will be transferred later to a medical surgical bed. Patient is primarily Ethiopian-speaking and we did use a carbon furnace operator in order to communicate fully and get adequate history from patient. He is a good historian. ROS Constitutional: fatigue, nausea ENT: no complaints Respiratory: no complaints Cardiovascular: no complaints Gastrointestinal: nausea, pain (Epigastric), vomiting (1 yesterday) Musculoskeletal: no complaints Skin: no complaints Neurologic: no complaints Endocrine: polydypsia, polyuria PMH/Family/Social Past Medical History Medical History: no pertinent history Past Surgical History Status post colon mass removal, 2 month ago, nonmalignant according to patient Family History Significant Family History: no pertinent family hx Social History Alcohol Use: none Smoking Status: Never smoker Drug Use: none Exam/Review of Systems Vital Signs Vitals Vital Signs Date Time Temp Pulse Resp B/P Pulse Ox O2 Delivery O2 Flow Rate FiO2 07/17/17 09:00 98.2 83 23 107/56 97 Room Air Exam Constitutional: alert, oriented, well developed Respiratory: clear to auscultation, normal air movement Cardiovascular: nl pulses, regular rate and rhythm Gastrointestinal: non-tender, soft Musculoskeletal: nl extremities to inspection, nl gait and stance Extremities: normal pulses, other (No edema, clubbing or cyanosis) Neurological: LONG WALL MINING MACHINE TENDER II-XII intact, nl mental status, nl speech, nl strength Labs Result Diagram: 07/17/17 0000 07/17/17 1102 Medications Medications Current Medications Sodium Chloride (NS) 1,000 ml @ 125 mls/hr Q8H IV Last administered on t 02:47; Admin Dose 125 MLS/HR; Start 07/17/17 at 02:47 Ondansetron HCl (Zofran Inj) 4 mg Q6H PRN IV NAUSEA AND/OR VOMITING; Start 07/17/17 at 03:00 Acetaminophen (Tylenol Tab) 650 mg Q6H PRN PO PAIN LEVEL 1-3 OR FEVER; Start 07/17/17 at 03:00 Acetaminophen/ Hydrocodone Bitart ([place] (5/325)) 1 tab Q6H PRN PO PAIN LEVEL 4 -6; Start 07/17/17 at 03:00 Acetaminophen/ Hydrocodone Bitart ([place] (5/325)) 2 tab Q6H PRN PO PAIN LEVEL 7 -10; Start 07/17/17 at 03:00 Morphine Sulfate (morphine) 2 mg Q4H PRN IV PAIN LEVEL 7-10; Start 07/17/17 at 03:00 Docusate Sodium (Colace) 100 mg Q12H PRN PO CONSTIPATION; Start 07/17/17 at 03: 00 Magnesium Hydroxide (Milk Of Mag) 30 ml DAILY PRN PO CONSTIPATION; Start at 03:00 Bisacodyl (Dulcolax Supp) 10 mg DAILY PRN [place] CONSTIPATION; Start 07/17/17 at 03 :00 Famotidine (Pepcid) 20 mg Q12 PO Last administered on 07/17/17 10:22; Admin Dose 20 MG; Start 07/17/17 at 09:00 Dextrose (D50w Syringe) 25 ml Q15M PRN IV Till BS 80 mg/dL or above x2 Last administered on 07/17/17 08:56; Admin Dose 25 ML; Start 07/17/17 at 05:00 Dextrose (D50w Syringe) 50 ml Q15M PRN IV Till BS 80 mg/dL or above x2; Start 07/17/17 at 05:00 Diagnostic Test (Pha) (Accu-Chek) 1 ea Q1H XX Last administered on 07/17/17 10 :22; Admin Dose 1 EA; Start 07/17/17 at 05:00 Procedures Procedures PROCEDURE: CT abdomen and pelvis with intravenous contrast. CLINICAL INDICATION: Pain. TECHNIQUE: CT of the abdomen/pelvis was performed utilizing axial images with reconstructions in sagittal and coronal planes after uneventful administration of 100 cc Omnipaque 300. The administered radiation dose is CTDI 8.7 mGy, DLP 551 mGy-cm. One or more of the following dose reduction techniques were used: automated exposure control, adjustment of the mA and/or kV according to patient size and/or use of iterative reconstruction technique. COMPARISON: No pertinent prior examinations were submitted for comparison. FINDINGS: Visualized Chest: The visualized lung bases are clear. Abdomen: The spleen, pancreas, gallbladder,and adrenal glands are unremarkable. The liver is markedly, diffusely decreased in attenuation, compatible with hepatic steatosis. The kidneys are without hydronephrosis. No definite urinary calculi are seen. Prior right hemicolectomy is noted. There is no evidence of bowel obstruction. No intra-abdominal free air is seen. There is no evidence of intra-abdominal adenopathy or free fluid. Pelvis: There is no evidence of pelvic adenopathy or free fluid. The bladder is unremarkable. There are small bilateral fat containing inguinal hernias. The prostate is enlarged, measuring up to 5.9 cm in transverse dimension. Osseous structures: Unremarkable. IMPRESSION: No acute findings. Hepatic steatosis. Small bilateral fat containing inguinal hernias. Enlarged prostate. RPTAT: HIKT .Jose Haque MD, Date Time Electronically viewed and signed by .Jose Haque MD, MD on 07/17/2017 03:00 PROCEDURE: Chest. CLINICAL INDICATION: Chest pain. TECHNIQUE: Single frontal view of the chest was obtained. COMPARISON: 10/11/2015. FINDINGS: The cardiac silhouette is within normal limits. The aortic arch is calcified. There is no focal consolidation, vascular congestion or pleural effusion. There is no pneumothorax. IMPRESSION: No evidence for active cardiopulmonary disease. Aortic atherosclerosis. .Devonte Patterson MD, Date Time Electronically viewed and signed by .Devonte Patterson MD, MD on 07/17/2017 03:24 EKG: Within normal limits PITA CASTANON Jul 17, 2017 11:51
[2017-07-17] MEDS: INSULIN ASPART [NOVOLOG] 3 ML PEN SC SCH ×2 (12:32→20:54)
[2017-07-17] MEDS: INSULIN GLARGINE [LANtus] 3 ML PEN SC SCH (12:38)
[2017-07-17] MEDS ORDERED: DEXTROSE 5%-0.9% NACL 1,000 ML IV SCH (13:00)
[2017-07-17] MEDS ORDERED: POTASSIUM PHOSPHATE 30 MM in SOD CHLORIDE 0.9% 250 ML IVPB ONE (14:30)
[2017-07-17] MEDS ORDERED: INSULIN ASPART [NOVOLOG] 3 ML PEN SC SCH (17:35)
[2017-07-18] MEDS: SOD CHLORIDE 0.9% 1,000 ML IV SCH ×2 (01:30→07:47)
[2017-07-18 02:00] VITALS: BP 104/59; RESP 20
[2017-07-18] MEDS: ACCU-CHEK XX SCH (02:00)
[2017-07-18] MEDS ORDERED: ACCU-CHEK XX SCH (02:00)
[2017-07-18 07:30] VITALS: BP 92/54; RESP 16
[2017-07-18] MEDS ORDERED: INSULIN GLARGINE [LANtus] 3 ML PEN SC SCH (08:00)
[2017-07-18] MEDS: INSULIN ASPART [NOVOLOG] 3 ML PEN SC SCH ×7 (08:05→21:21)
[2017-07-18] MEDS: INSULIN GLARGINE [LANtus] 3 ML PEN SC SCH (08:07)
[2017-07-18] MEDS: FAMOTIDINE 20 MG TAB PO SCH ×2 (08:09→21:16)
[2017-07-18] MEDS ORDERED: POTASSIUM CHLORIDE (SR) 20 MEQ TAB PO STA (10:02)
[2017-07-18] MEDS ORDERED: POTASSIUM PHOSPHATE 30 MM in SOD CHLORIDE 0.9% 250 ML IVPB ONE (11:30)
[2017-07-18 14:10] VITALS: BP 103/60; RESP 18
--- NOTE | 2017-07-18 14:14 | PN ---
Date/Time of Note Date/Time of Note DATE: 07/18/17 TIME: 14:06 Assessment/Plan VTE Prophylaxis VTE Prophylaxis Intervention: ambulation, SCD's Lines/Catheters IV Catheter Type (from Nrs): Peripheral IV Urinary Cath still in place: No Assessment/Plan Assessment/Plan 71-year-old male with: 1. New diagnosis of diabetes mellitus, s/p DKA. Hemoglobin A1c out of range, on subcutaneous insulin with Lantus increased to 17 units subcu daily along with 6 units of NovoLog q. before meals and mild sliding scale insulin. Continue ADA diet Diabetic education ordered and pending Replete potassium and phosphorus today DC normal saline today, patient tolerating p.o. 2. Elevated lipase, unclear if it is just in setting of DKA, No signs of pancreatitis on CAT scan of the abdomen. No abdominal pain, lipase trending down. Prophylaxis: SCDs for DVT prophylaxis, Pepcid for GI prophylaxis Disposition: Discharge planning for tomorrow after patient seen by family life educator. Subjective 24 Hr Interval Summary Free Text/Dictation Patient feels much better today, awake alert, blood sugars running between 160s- 340s, sliding scale change to moderate and insulin regimen adjusted. Will D/C IV fluids Exam/Review of Systems Vital Signs Vitals Vital Signs Date Time Temp Pulse Resp B/P Pulse Ox O2 Delivery O2 Flow Rate FiO2 07/18/17 07:30 97.3 53 16 92/54 94 07/17/17 22:20 Room Air Intake and Output 07/17/17 07/17/17 07/18/17 15:00 23:00 07:00 Intake Total 875 ml 1320 ml 870 ml Output Total 250 ml Balance 875 ml 1070 ml 870 ml Exam Constitutional: alert, oriented, well developed Respiratory: clear to auscultation, normal air movement Cardiovascular: nl pulses, regular rate and rhythm Gastrointestinal: non-tender, soft Musculoskeletal: nl extremities to inspection, nl gait and stance Extremities: normal pulses, other (No edema, clubbing or cyanosis) Neurological: ENVIRONMENTAL PROTECTION INSPECTOR II-XII intact, nl mental status, nl speech, nl strength Results Result Diagram: 07/18/17 0556 07/18/17 0556 Results 24 hrs Laboratory Tests Test 07/17/17 14:42 07/17/17 17:04 07/17/17 18:37 07/17/17 20:53 Bedside Glucose 247 H 223 H 158 Sodium Level 139 Potassium Level 3.6 Chloride Level 110 Carbon Dioxide Level 20 L Anion Gap 13 Blood Urea Nitrogen 12 Creatinine 0.64 Glucose Level 199 Calcium Level 7.5 L Phosphorus Level 2.3 L Magnesium Level 2.1 Lipase 713 H Test 07/18/17 00:02 07/18/17 05:56 07/18/17 07:43 07/18/17 11:34 Sodium Level 140 141 Potassium Level 3.8 3.3 L Chloride Level 111 H 111 H Carbon Dioxide Level 20 L 22 Anion Gap 13 11 Blood Urea Nitrogen 12 10 Creatinine 0.61 0.64 Glucose Level 157 166 Calcium Level 8.0 L 8.0 L Phosphorus Level 1.8 L 2.3 L Magnesium Level 2.2 2.0 White Blood Count 5.9 # Red Blood Count 4.45 #L Hemoglobin 12.4 #L Hematocrit 37.0 #L Mean Corpuscular Volume 83.1 Mean Corpuscular Hemoglobin 27.9 L Mean Corpuscular Hemoglobin Concent 33.5 Red Cell Distribution Width 12.8 Platelet Count 156 # Mean Platelet Volume 12.2 H Neutrophils % 41.9 Lymphocytes % 44.8 Monocytes % 9.1 Eosinophils % 3.1 Basophils % 0.9 Nucleated Red Blood Cells % 0.0 Neutrophils # 2.5 Lymphocytes # 2.6 Monocytes # 0.5 Eosinophils # 0.2 Basophils # 0.1 Nucleated Red Blood Cells # 0.0 Total Bilirubin 0.3 Direct Bilirubin 0.00 Indirect Bilirubin 0.3 Aspartate Amino Transf (AST/SGOT) 26 Alanine Aminotransferase (ALT/SGPT) 46 Alkaline Phosphatase 58 Total Protein 5.8 #L Albumin 2.9 #L Globulin 2.90 Albumin/Globulin Ratio 1.00 Amylase Level 93 Lipase 392 H Bedside Glucose 188 341 H Medications Medications Current Medications Ondansetron HCl (Zofran Inj) 4 mg Q6H PRN IV NAUSEA AND/OR VOMITING; Start 07/17/17 at 03:00 Acetaminophen (Tylenol Tab) 650 mg Q6H PRN PO PAIN LEVEL 1-3 OR FEVER; Start 07/17/17 at 03:00 Acetaminophen/ Hydrocodone Bitart ([place] (5/325)) 1 tab Q6H PRN PO PAIN LEVEL 4 -6; Start 07/17/17 at 03:00 Acetaminophen/ Hydrocodone Bitart ([place] (5/325)) 2 tab Q6H PRN PO PAIN LEVEL 7 -10; Start 07/17/17 at 03:00 Morphine Sulfate (morphine) 2 mg Q4H PRN IV PAIN LEVEL 7-10; Start 07/17/17 at 03:00 Docusate Sodium (Colace) 100 mg Q12H PRN PO CONSTIPATION; Start 07/17/17 at 03: 00 Magnesium Hydroxide (Milk Of Mag) 30 ml DAILY PRN PO CONSTIPATION Last administered on 07/17/17 12:44; Admin Dose 30 ML; Start 07/17/17 at 03:00 Bisacodyl (Dulcolax Supp) 10 mg DAILY PRN [place] CONSTIPATION; Start 07/17/17 at 03 :00 Famotidine (Pepcid) 20 mg Q12 PO Last administered on 07/18/17 08:09; Admin Dose 20 MG; Start 07/17/17 at 09:00 Diagnostic Test (Pha) (Accu-Chek) 1 ea 02 XX ; Start 07/18/17 at 02:00 Insulin Glargine (Lantus) 14 unit DAILY@08 SC Last administered on 07/18/17 08 :07; Admin Dose 14 UNIT; Start 07/17/17 at 12:00 Miscellaneous Information 1 ea NOTE XX ; Start 07/17/17 at 12:00 Glucose (Glutose) 15 gm Q15M PRN PO DECREASED GLUCOSE; Start 07/17/17 at 12:00 Glucose (Glutose) 22.5 gm Q15M PRN PO DECREASED GLUCOSE; Start 07/17/17 at 12: 00 Dextrose (D50w Syringe) 25 ml Q15M PRN IV DECREASED GLUCOSE; Start 07/17/17 at 12:00 Dextrose (D50w Syringe) 50 ml Q15M PRN IV DECREASED GLUCOSE; Start 07/17/17 at 12:00 Glucagon (Glucagen) 1 mg Q15M PRN IM DECREASED GLUCOSE; Start 07/17/17 at 12:00 Glucose 15 gm 15 gm Q15M PRN BUCCAL DECREASED GLUCOSE; Start 07/17/17 at 12:00 Sodium Chloride 1,000 ml @ 100 mls/hr Q10H IV Last administered on 07/18/17 07:47; Admin Dose 100 MLS/HR; Start 07/17/17 at 15:30 Potassium Phosphate/Sodium Chloride (K Phos (Mm)/NS) 260 ml @ 65 mls/hr ONCE ONCE IVPB Last administered on 07/18/17t 11:28; Admin Dose 65 MLS/HR; Start at 11:30; Stop 07/18/17 at 15:29 PITA CASTANON Jul 18, 2017 14:14
[2017-07-18 20:00] VITALS: BP 122/60; RESP 19
[2017-07-19 02:00] VITALS: BP 105/55; RESP 18
[2017-07-19] MEDS: ACCU-CHEK XX SCH (02:00)
[2017-07-19 08:00] VITALS: BP 94/51; RESP 20
[2017-07-19] MEDS: FAMOTIDINE 20 MG TAB PO SCH ×2 (08:12→22:30)
[2017-07-19] MEDS: INSULIN GLARGINE [LANtus] 3 ML PEN SC SCH (08:13)
[2017-07-19] MEDS: INSULIN ASPART [NOVOLOG] 3 ML PEN SC SCH ×7 (08:14→22:50)
[2017-07-19 14:00] VITALS: BP 107/66; RESP 18
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
--- NOTE | 2017-07-19 15:33 | PN ---
Date/Time of Note Date/Time of Note DATE: 07/19/17 TIME: 15:05 Assessment/Plan VTE Prophylaxis VTE Prophylaxis Intervention: ambulation, SCD's Lines/Catheters IV Catheter Type (from Nrs): Peripheral IV Urinary Cath still in place: No Assessment/Plan Assessment/Plan 71-year-old male with: 1. New diagnosis of diabetes mellitus, s/p DKA. Hemoglobin A1c out of range, on subcutaneous insulin with Lantus increased to 17 units subcu daily along with 6 units of NovoLog q. before meals and mild sliding scale insulin. Continue ADA diet Diabetic education ongoing Patient tolerating p.o. and ambulatory. 2. Elevated lipase, unclear if it is just in setting of DKA, No signs of pancreatitis on CAT scan of the abdomen. No abdominal pain, lipase trending down. Prophylaxis: SCDs for DVT prophylaxis, Pepcid for GI prophylaxis Disposition: Discharge planning for tomorrow, diabetic education started, will check with his IPA what form of insulin is approved for him. Subjective 24 Hr Interval Summary Free Text/Dictation Patient doing well, blood sugars mid 200s, insulin regimen changed. Diabetic education started, patient definitely extremely uneducated when it comes to diabetes mellitus and diabetic diet. Per unit educator likely to keep another 24 hours for adjustment of Lantus and also further education. Exam/Review of Systems Vital Signs Vitals Vital Signs Date Time Temp Pulse Resp B/P Pulse Ox O2 Delivery O2 Flow Rate FiO2 07/19/17 14:00 98.6 88 18 107/66 96 07/17/17 22:20 Room Air Intake and Output 07/18/17 07/18/17 07/19/17 15:00 23:00 07:00 Intake Total 550 ml 990 ml 680 ml Balance 550 ml 990 ml 680 ml Exam Constitutional: alert, oriented, well developed Respiratory: clear to auscultation, normal air movement Cardiovascular: nl pulses, regular rate and rhythm Gastrointestinal: non-tender, soft Musculoskeletal: nl extremities to inspection Extremities: normal pulses, other (No edema, clubbing or cyanosis) Neurological: WORLD RENOWNED CHEF AND RESTAURANT OWNER II-XII intact, nl mental status, nl speech, nl strength Results Result Diagram: 07/18/17 0556 07/19/17 0520 Results 24 hrs Laboratory Tests Test 07/18/17 16:36 07/18/17 21:14 07/19/17 01:49 07/19/17 05:20 Bedside Glucose 305 H 310 H 205 Sodium Level 138 Potassium Level 4.0 Chloride Level 104 Carbon Dioxide Level 24 Anion Gap 14 Blood Urea Nitrogen 7 Creatinine 0.59 L Glucose Level 233 H Calcium Level 8.4 Phosphorus Level 3.3 Magnesium Level 1.9 Amylase Level 73 Lipase 314 H Test 07/19/17 08:10 07/19/17 12:10 Bedside Glucose 223 H 233 H Medications Medications Current Medications Ondansetron HCl (Zofran Inj) 4 mg Q6H PRN IV NAUSEA AND/OR VOMITING; Start 07/17/17 at 03:00 Acetaminophen (Tylenol Tab) 650 mg Q6H PRN PO PAIN LEVEL 1-3 OR FEVER; Start 07/17/17 at 03:00 Acetaminophen/ Hydrocodone Bitart ([place] (5/325)) 1 tab Q6H PRN PO PAIN LEVEL 4 -6; Start 07/17/17 at 03:00 Acetaminophen/ Hydrocodone Bitart ([place] (5/325)) 2 tab Q6H PRN PO PAIN LEVEL 7 -10; Start 07/17/17 at 03:00 Morphine Sulfate (morphine) 2 mg Q4H PRN IV PAIN LEVEL 7-10; Start 07/17/17 at 03:00 Docusate Sodium (Colace) 100 mg Q12H PRN PO CONSTIPATION; Start 07/17/17 at 03: 00 Magnesium Hydroxide (Milk Of Mag) 30 ml DAILY PRN PO CONSTIPATION Last administered on 07/17/17 12:44; Admin Dose 30 ML; Start 07/17/17 at 03:00 Bisacodyl (Dulcolax Supp) 10 mg DAILY PRN [place] CONSTIPATION; Start 07/17/17 at 03 :00 Famotidine (Pepcid) 20 mg Q12 PO Last administered on 07/19/17 08:12; Admin Dose 20 MG; Start 07/17/17 at 09:00 Diagnostic Test (Pha) (Accu-Chek) 1 ea 02 XX ; Start 07/18/17 at 02:00 Miscellaneous Information 1 ea NOTE XX ; Start 07/17/17 at 12:00 Glucose (Glutose) 15 gm Q15M PRN PO DECREASED GLUCOSE; Start 07/17/17 at 12:00 Glucose (Glutose) 22.5 gm Q15M PRN PO DECREASED GLUCOSE; Start 07/17/17 at 12: 00 Dextrose (D50w Syringe) 25 ml Q15M PRN IV DECREASED GLUCOSE; Start 07/17/17 at 12:00 Dextrose (D50w Syringe) 50 ml Q15M PRN IV DECREASED GLUCOSE; Start 07/17/17 at 12:00 Glucagon (Glucagen) 1 mg Q15M PRN IM DECREASED GLUCOSE; Start 07/17/17 at 12:00 Glucose (Glutose) 15 gm Q15M PRN BUCCAL DECREASED GLUCOSE; Start 07/17/17 at 12 :00 Insulin Glargine (Lantus) 17 unit DAILY@08 SC Last administered on 07/19/17t 08 :13; Admin Dose 17 UNIT; Start 07/19/17 at 08:00 PITA CASTANON Jul 19, 2017 15:15
--- NOTE | 2017-07-19 15:33 | PN ---
Date/Time of Note Date/Time of Note DATE: 07/19/17 TIME: 15:05 Assessment/Plan VTE Prophylaxis VTE Prophylaxis Intervention: ambulation, SCD's Lines/Catheters IV Catheter Type (from Nrs): Peripheral IV Urinary Cath still in place: No Assessment/Plan Assessment/Plan 71-year-old male with: 1. New diagnosis of diabetes mellitus, s/p DKA. Hemoglobin A1c out of range, on subcutaneous insulin with Lantus increased to 17 units subcu daily along with 6 units of NovoLog q. before meals and mild sliding scale insulin. Continue ADA diet Diabetic education ongoing Patient tolerating p.o. and ambulatory. 2. Elevated lipase, unclear if it is just in setting of DKA, No signs of pancreatitis on CAT scan of the abdomen. No abdominal pain, lipase trending down. Prophylaxis: SCDs for DVT prophylaxis, Pepcid for GI prophylaxis Disposition: Discharge planning for tomorrow, diabetic education started, will check with his IPA what form of insulin is approved for him. Subjective 24 Hr Interval Summary Free Text/Dictation Patient doing well, blood sugars mid 200s, insulin regimen changed. Diabetic education started, patient definitely extremely uneducated when it comes to diabetes mellitus and diabetic diet. Per patient educator likely to keep another 24 hours for adjustment of Lantus and also further education. Exam/Review of Systems Vital Signs Vitals Vital Signs Date Time Temp Pulse Resp B/P Pulse Ox O2 Delivery O2 Flow Rate FiO2 07/19/17 14:00 98.6 88 18 107/66 96 07/17/17 22:20 Room Air Intake and Output 07/18/17 07/18/17 07/19/17 15:00 23:00 07:00 Intake Total 550 ml 990 ml 680 ml Balance 550 ml 990 ml 680 ml Exam Constitutional: alert, oriented, well developed Respiratory: clear to auscultation, normal air movement Cardiovascular: nl pulses, regular rate and rhythm Gastrointestinal: non-tender, soft Musculoskeletal: nl extremities to inspection Extremities: normal pulses, other (No edema, clubbing or cyanosis) Neurological: CONFIGURATION MANAGEMENT ADVISOR II-XII intact, nl mental status, nl speech, nl strength Results Result Diagram: 07/18/17 0556 07/19/17 0520 Results 24 hrs Laboratory Tests Test 07/18/17 16:36 07/18/17 21:14 07/19/17 01:49 07/19/17 05:20 Bedside Glucose 305 H 310 H 205 Sodium Level 138 Potassium Level 4.0 Chloride Level 104 Carbon Dioxide Level 24 Anion Gap 14 Blood Urea Nitrogen 7 Creatinine 0.59 L Glucose Level 233 H Calcium Level 8.4 Phosphorus Level 3.3 Magnesium Level 1.9 Amylase Level 73 Lipase 314 H Test 07/19/17 08:10 07/19/17 12:10 Bedside Glucose 223 H 233 H Medications Medications Current Medications Ondansetron HCl (Zofran Inj) 4 mg Q6H PRN IV NAUSEA AND/OR VOMITING; Start 07/17/17 at 03:00 Acetaminophen (Tylenol Tab) 650 mg Q6H PRN PO PAIN LEVEL 1-3 OR FEVER; Start 07/17/17 at 03:00 Acetaminophen/ Hydrocodone Bitart ([place] (5/325)) 1 tab Q6H PRN PO PAIN LEVEL 4 -6; Start 07/17/17 at 03:00 Acetaminophen/ Hydrocodone Bitart ([place] (5/325)) 2 tab Q6H PRN PO PAIN LEVEL 7 -10; Start 07/17/17 at 03:00 Morphine Sulfate (morphine) 2 mg Q4H PRN IV PAIN LEVEL 7-10; Start 07/17/17 at 03:00 Docusate Sodium (Colace) 100 mg Q12H PRN PO CONSTIPATION; Start 07/17/17 at 03: 00 Magnesium Hydroxide (Milk Of Mag) 30 ml DAILY PRN PO CONSTIPATION Last administered on 07/17/17 12:44; Admin Dose 30 ML; Start 07/17/17 at 03:00 Bisacodyl (Dulcolax Supp) 10 mg DAILY PRN [place] CONSTIPATION; Start 07/17/17 at 03 :00 Famotidine (Pepcid) 20 mg Q12 PO Last administered on 07/19/17 08:12; Admin Dose 20 MG; Start 07/17/17 at 09:00 Diagnostic Test (Pha) (Accu-Chek) 1 ea 02 XX ; Start 07/18/17 at 02:00 Miscellaneous Information 1 ea NOTE XX ; Start 07/17/17 at 12:00 Glucose (Glutose) 15 gm Q15M PRN PO DECREASED GLUCOSE; Start 07/17/17 at 12:00 Glucose (Glutose) 22.5 gm Q15M PRN PO DECREASED GLUCOSE; Start 07/17/17 at 12: 00 Dextrose (D50w Syringe) 25 ml Q15M PRN IV DECREASED GLUCOSE; Start 07/17/17 at 12:00 Dextrose (D50w Syringe) 50 ml Q15M PRN IV DECREASED GLUCOSE; Start 07/17/17 at 12:00 Glucagon (Glucagen) 1 mg Q15M PRN IM DECREASED GLUCOSE; Start 07/17/17 at 12:00 Glucose (Glutose) 15 gm Q15M PRN BUCCAL DECREASED GLUCOSE; Start 07/17/17 at 12 :00 Insulin Glargine (Lantus) 17 unit DAILY@08 SC Last administered on 07/19/17t 08 :13; Admin Dose 17 UNIT; Start 07/19/17 at 08:00 PITA CASTANON Jul 19, 2017 15:15
[2017-07-19 19:58] VITALS: BP 93/55; RESP 20
[2017-07-20] MEDS: ACCU-CHEK XX SCH (01:46)
[2017-07-20 02:18] VITALS: BP 93/55; RESP 18
[2017-07-20 07:55] VITALS: BP 101/55; RESP 19
[2017-07-20] MEDS: FAMOTIDINE 20 MG TAB PO SCH (08:09)
[2017-07-20] MEDS: INSULIN ASPART [NOVOLOG] 3 ML PEN SC SCH ×4 (08:10→12:17)
[2017-07-20] MEDS: INSULIN GLARGINE [LANtus] 3 ML PEN SC SCH (08:10)
[2017-07-20] MEDS ORDERED: GUAIFENESIN/DM 5ML CUP PO PRN (09:30)
--- NOTE | 2017-07-20 11:47 | PN ---
Date/Time of Note Date/Time of Note DATE: 07/20/17 TIME: 11:36 Assessment/Plan VTE Prophylaxis VTE Prophylaxis Intervention: SCD's Lines/Catheters [facility] [place] Urinary Cath still in place: No Assessment/Plan Assessment/Plan 71-year-old male with: 1. New diagnosis of diabetes mellitus, s/p DKA. Hemoglobin A1c out of range, Continue Lantus 18 units subcu daily along with 6 units of Humalog Quick pen before meals and mild sliding scale insulin. Continue ADA diet Diabetic education to be completed today, patient to discharge home with home health RN for further diabetic education. Patient tolerating p.o. and ambulatory. 2. Elevated lipase, unclear if it is just in setting of DKA, No signs of pancreatitis on CAT scan of the abdomen. No abdominal pain, lipase trending down. Prophylaxis: SCDs for DVT prophylaxis, Pepcid for GI prophylaxis Disposition: Discharge planned for today, with home health RN. Follow-up with primary care physician within 1 week, referral to endocrinology outpatient for new onset diabetes mellitus and status post episode of DKA. Subjective 24 Hr Interval Summary Free Text/Dictation Patient doing well, blood sugars better controlled, diabetic education to be completed today with insulin teaching, otherwise patient has been taught how to inject already and how to check his blood sugars. Discharge planning today with home health RN, referral to endocrinology, primary care physician follow- up. Exam/Review of Systems Vital Signs Vitals Vital Signs Date Time Temp Pulse Resp B/P Pulse Ox O2 Delivery O2 Flow Rate FiO2 07/20/17 07:55 97.8 80 19 101/55 94 07/17/17 22:20 Room Air Intake and Output 07/19/17 07/19/17 07/20/17 15:00 23:00 07:00 Intake Total 300 ml Output Total 350 ml Balance -50 ml Exam Constitutional: alert, oriented, well developed Respiratory: clear to auscultation, normal air movement Cardiovascular: nl pulses, regular rate and rhythm Gastrointestinal: non-tender, soft Musculoskeletal: nl extremities to inspection Extremities: normal pulses Neurological: SOLUTIONS DEVELOPMENT ANALYST II-XII intact, nl mental status, nl speech, nl strength Results Result Diagram: 07/18/17 0556 07/19/17 0520 Results 24 hrs Laboratory Tests Test 07/19/17 12:10 07/19/17 17:33 07/19/17 22:28 07/20/17 07:23 Bedside Glucose 233 H 231 H 136 Lab Scanned Report REFERENCE LAB Test 07/20/17 08:00 Bedside Glucose 199 Medications Medications Current Medications Ondansetron HCl (Zofran Inj) 4 mg Q6H PRN IV NAUSEA AND/OR VOMITING; Start 07/17/17 at 03:00 Acetaminophen (Tylenol Tab) 650 mg Q6H PRN PO PAIN LEVEL 1-3 OR FEVER; Start 07/17/17 at 03:00 Acetaminophen/ Hydrocodone Bitart ([place] (5/325)) 1 tab Q6H PRN PO PAIN LEVEL 4 -6; Start 07/17/17 at 03:00 Acetaminophen/ Hydrocodone Bitart ([place] (5/325)) 2 tab Q6H PRN PO PAIN LEVEL 7 -10; Start 07/17/17 at 03:00 Morphine Sulfate (morphine) 2 mg Q4H PRN IV PAIN LEVEL 7-10; Start 07/17/17 at 03:00 Docusate Sodium (Colace) 100 mg Q12H PRN PO CONSTIPATION; Start 07/17/17 at 03: 00 Magnesium Hydroxide (Milk Of Mag) 30 ml DAILY PRN PO CONSTIPATION Last administered on 07/17/17 12:44; Admin Dose 30 ML; Start 07/17/17 at 03:00 Bisacodyl (Dulcolax Supp) 10 mg DAILY PRN [place] CONSTIPATION; Start 07/17/17 at 03 :00 Famotidine (Pepcid) 20 mg Q12 PO Last administered on 07/20/17 08:09; Admin Dose 20 MG; Start 07/17/17 at 09:00 Diagnostic Test (Pha) (Accu-Chek) 1 ea 02 XX ; Start 07/18/17 at 02:00 Miscellaneous Information 1 ea NOTE XX ; Start 07/17/17 at 12:00 Glucose (Glutose) 15 gm Q15M PRN PO DECREASED GLUCOSE; Start 07/17/17 at 12:00 Glucose (Glutose) 22.5 gm Q15M PRN PO DECREASED GLUCOSE; Start 07/17/17 at 12: 00 Dextrose (D50w Syringe) 25 ml Q15M PRN IV DECREASED GLUCOSE; Start 07/17/17 at 12:00 Dextrose (D50w Syringe) 50 ml Q15M PRN IV DECREASED GLUCOSE; Start 07/17/17 at 12:00 Glucagon (Glucagen) 1 mg Q15M PRN IM DECREASED GLUCOSE; Start 07/17/17 at 12:00 Glucose (Glutose) 15 gm Q15M PRN BUCCAL DECREASED GLUCOSE; Start 07/17/17 at 12 :00 Insulin Glargine (Lantus) 17 unit DAILY@08 SC Last administered on 07/20/17 08 :10; Admin Dose 17 UNIT; Start 07/19/17 at 08:00 Guaifenesin/ Dextromethorphan (Robitussin Dm Liquid Cup) 5 ml Q4H PRN PO COUGH Last administered on 07/20/17 09:59; Admin Dose 5 ML; Start 07/20/17 at 09:30 PITA CASTANON Jul 20, 2017 11:46
--- NOTE | 2017-07-20 11:47 | PN ---
Date/Time of Note Date/Time of Note DATE: 07/20/17 TIME: 11:36 Assessment/Plan VTE Prophylaxis VTE Prophylaxis Intervention: SCD's Lines/Catheters IV [facility] Type [facility]from [facility] Saline Lock Urinary Cath still in place: No Assessment/Plan Assessment/Plan 71-year-old male with: 1. New diagnosis of diabetes mellitus, s/p DKA. Hemoglobin A1c out of range, Continue Lantus 18 units subcu daily along with 6 units of Humalog Quick pen before meals and mild sliding scale insulin. Continue ADA diet Diabetic education to be completed today, patient to discharge home with home health RN for further diabetic education. Patient tolerating p.o. and ambulatory. 2. Elevated lipase, unclear if it is just in setting of DKA, No signs of pancreatitis on CAT scan of the abdomen. No abdominal pain, lipase trending down. Prophylaxis: SCDs for DVT prophylaxis, Pepcid for GI prophylaxis Disposition: Discharge planned for today, with home health RN. Follow-up with primary care physician within 1 week, referral to endocrinology outpatient for new onset diabetes mellitus and status post episode of DKA. Subjective 24 Hr Interval Summary Free Text/Dictation Patient doing well, blood sugars better controlled, diabetic education to be completed today with insulin teaching, otherwise patient has been taught how to inject already and how to check his blood sugars. Discharge planning today with home health RN, referral to endocrinology, primary care physician follow- up. 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, nl mental status, nl speech, nl strength Results Result Diagram: 07/18/17 0556 07/19/17 0520 Results 24 hrs Laboratory Tests Test 07/19/17 12:10 07/19/17 17:33 07/19/17 22:28 07/20/17 07:23 Bedside Glucose 233 H 231 H 136 Lab Scanned Report REFERENCE LAB Test 07/20/17 08:00 Bedside Glucose 199 Medications Medications Current Medications Ondansetron HCl (Zofran Inj) 4 mg Q6H PRN IV NAUSEA AND/OR VOMITING; Start 07/17/17 at 03:00 Acetaminophen (Tylenol Tab) 650 mg Q6H PRN PO PAIN LEVEL 1-3 OR FEVER; Start 07/17/17 at 03:00 Acetaminophen/ Hydrocodone Bitart ([place] (5/325)) 1 tab Q6H PRN PO PAIN LEVEL 4 -6; Start 07/17/17 at 03:00 Acetaminophen/ Hydrocodone Bitart ([place] (5/325)) 2 tab Q6H PRN PO PAIN LEVEL 7 -10; Start 07/17/17 at 03:00 Morphine Sulfate (morphine) 2 mg Q4H PRN IV PAIN LEVEL 7-10; Start 07/17/17 at 03:00 Docusate Sodium (Colace) 100 mg Q12H PRN PO CONSTIPATION; Start 07/17/17 at 03: 00 Magnesium Hydroxide (Milk Of Mag) 30 ml DAILY PRN PO CONSTIPATION Last administered on 07/17/17 12:44; Admin Dose 30 ML; Start 07/17/17 at 03:00 Bisacodyl (Dulcolax Supp) 10 mg DAILY PRN [place] CONSTIPATION; Start 07/17/17 at 03 :00 Famotidine (Pepcid) 20 mg Q12 PO Last administered on 07/20/17 08:09; Admin Dose 20 MG; Start 07/17/17 at 09:00 Diagnostic Test (Pha) (Accu-Chek) 1 ea 02 XX ; Start 07/18/17 at 02:00 Miscellaneous Information 1 ea NOTE XX ; Start 07/17/17 at 12:00 Glucose (Glutose) 15 gm Q15M PRN PO DECREASED GLUCOSE; Start 07/17/17 at 12:00 Glucose (Glutose) 22.5 gm Q15M PRN PO DECREASED GLUCOSE; Start 07/17/17 at 12: 00 Dextrose (D50w Syringe) 25 ml Q15M PRN IV DECREASED GLUCOSE; Start 07/17/17 at 12:00 Dextrose (D50w Syringe) 50 ml Q15M PRN IV DECREASED GLUCOSE; Start 07/17/17 at 12:00 Glucagon (Glucagen) 1 mg Q15M PRN IM DECREASED GLUCOSE; Start 07/17/17 at 12:00 Glucose (Glutose) 15 gm Q15M PRN BUCCAL DECREASED GLUCOSE; Start 07/17/17 at 12 :00 Insulin Glargine (Lantus) 17 unit DAILY@08 SC Last administered on 07/20/17 08 :10; Admin Dose 17 UNIT; Start 07/19/17 at 08:00 Guaifenesin/ Dextromethorphan (Robitussin Dm Liquid Cup) 5 ml Q4H PRN PO COUGH Last administered on 07/20/17 09:59; Admin Dose 5 ML; Start 07/20/17 at 09:30 PITA CASTANON Jul 20, 2017 11:46
--- NOTE | 2017-07-20 11:51 | PDOCDIS ---
Discharge Instructions CONDITION Patient Condition: Good HOME CARE INSTRUCTIONS: Special Diet: Controlled Carb ACTIVITY: Activity Restrictions: No Restrictions FOLLOW UP/APPOINTMENTS Follow-up Plan Home health RN for diabetic education Follow-up with primary care physician within 1 week Referral to endocrinology for new diagnosis of diabetes mellitus, status post DKA. PITA CASTANON Jul 20, 2017 11:50
[2017-07-20] MEDS ORDERED: INSU200I SQ (11:55)
[2017-07-20] MEDS ORDERED: LANT3I SC (11:55)
== END 2017-07-20 15:37 | disposition home health service (06) | DRG 639 ==
LOC: FTE 22:19 → ICU 07-17 08:07 → PP2 07-17 08:51
PROVIDERS: ADMIT Internal Medicine; ATTEND Internal Medicine
PROC: 4A033R1 Measurement of Arterial Saturation, Peripheral, Percutaneous Approach (ICD-10-PCS; principal; 2017-07-17)
DX: E11.10 Type 2 diabetes mellitus with ketoacidosis without coma (principal); R74.8 Abnormal levels of other serum enzymes; Z87.891 Personal history of nicotine dependence
CPT/HCPCS: 36415; 36600; 71010; 74177; 80048; 80053; 81001; 82043; 82150; 82550; 82553; 82803; 82962; 83036; 83605; 83690; 83735; 84100; 84484; 85025; 85610; 85730; 87040; 87081; 87086; 93005; 96365; 96366; 96375; J1815; J2405; J7030; J7042; J7050; Q9967

== ENCOUNTER 2019-04-14 10:42 | Emergency (ER) | payer BC ==
[~2019-04-14] VITALS: Ht 157.5 cm; Wt 75.0 kg
[~2019-04-14 10:42] MED LIST changes: +ATOR20TA38 PO; -HYDR-3498 PO; +IBUP800T48 PO; +INSU100I12 SQ; +INSU200I SQ; +LANT3I SC
[2019-04-14 10:46] VITALS: Ht 157.5 cm; Wt 75.0 kg
[2019-04-14] MEDS ORDERED: BELLADONNA/PHENOBARBITAL TAB PO STA (11:03)
[2019-04-14] MEDS ORDERED: LIDOCAINE/MYLANTA 40 ML BTL PO STA (11:03)
[2019-04-14] MEDS ORDERED: ONDANSETRON 4 MG INJ IV STA (11:26)
[2019-04-14] MEDS ORDERED: morphine 4 MG/ML VIAL IV STA (11:26)
[2019-04-14] MEDS ORDERED: SOD CHLORIDE 0.9% 100 ML ONE (12:33)
[2019-04-14] MEDS ORDERED: IOHEXOL 300MG/ML 30 ML BTL ONE ×3 (12:33)
--- NOTE | 2019-04-14 13:08 | ERD ---
ER Documentation Chief Complaint Chief Complaint ap x 1 mos HPI This is a very pleasant 73-year-old male with a history of diabetes and hypertension. The patient indicates for the past 1 month he has been having severe abdominal pain. Indicates that the abdominal pain is intermittent. Is present in the epigastric region and right upper quadrant. The patient had an outpatient ultrasound of the abdomen performed on March 31, 2019. The patient presented to the emergency department with report which indicated the patient had several hypoechoic masses in the liver the largest measuring 11.3 in the right hepatic lobe. There was no flow noted in any of these lesions. These lesions were suspicious and concerning for primary hepatic malignancy with hepatic metastasis or hepatic metastasis from other occult primary or other d ifferential considerations should be cystic lesions or abscesses. He was instructed to undergo a CT of the abdomen for further evaluation. The patient indicated he is currently waiting to see a specialist that the pain worsened and therefore he came to the emergency department to be further evaluated. He denies any fever shaking or chills. He states he does not drink alcohol. He denies any hemoptysis hematemesis or melanotic stools. He states there is no alleviating or exacerbating factors to his pain. No fevers or shaking no chills. No chest pain. Patient states he had no weight loss. ROS All systems reviewed and are negative except as per history of present illness. Medications Home Meds Active Scripts Ibuprofen* (Motrin*) 800 Mg Tab, 800 MG PO Q6H PRN for PAIN AND OR ELEVATED TEMP, #30 TAB Prov:CHI BLACKMON MD 04/14/19 Reported Medications Atorvastatin Calcium* (Atorvastatin Calcium*) 20 Mg Tablet, 20 MG PO QHS, #30 TAB 04/14/19 Insulin Lispro (Humalog Kwikpen U-100) 100 Unit/1 Ml Insuln.pen, 15 UNIT SQ WITH MEALS, EA 04/14/19 Insulin Glargine* (Lantus*) 100 Unit/Ml Soln, 20 UNIT SC QHS, #1 VIAL 04/14/19 Discontinued Scripts Insulin Glargine* (Lantus*) 100 Unit/Ml Soln, 18 UNIT SC DAILY@08 for 30 Days, 3 Refills Please provide Lantus pen Prov:PITA CASTANON 07/20/17 Insulin Lispro (Humalog Kwikpen) 200 Unit/1 Ml Insuln.pen, 6 UNIT SQ AC MEALS, #1 EA 3 Refills Prov:PITA CASTANON 07/20/17 Allergies Allergies: Coded Allergies: No Known Allergy (Unverified , 04/14/19) PMhx/Soc History of Surgery: Yes (Right colectomy) Anesthesia Reaction: No Hx Neurological Disorder: No Hx Respiratory Disorders: No Hx Cardiac Disorders: No Hx Psychiatric Problems: No Hx Miscellaneous Medical Probl: Yes (bph, ) Hx Alcohol Use: No Hx Substance Use: No Hx Tobacco Use: No Smoking Status: Never smoker Physical Exam Vitals Vital Signs Date Temp Pulse Resp B/P (MAP) Pulse Ox O2 O2 Flow FiO2 Time Delivery Rate 04/14/19 97.4 60 18 132/58 99 10:46 (82) Physical Exam Constitutional:Well-developed. Well-nourished. HEENT:Normocephalic. Atraumatic.Pupils were equal round reactive to light. Moist mucous membranes.No tonsillar exudates. Neck: No nuchal rigidity. No lymphadenopathy. No posterior cervical spine tenderness or step-offs. Respiratory: Not using accessory muscles of respiration.Lungs were clear to auscultation bilaterally. No rhonchi. No rales. No wheezing. Cardiovascular: Regular rate regular rhythm.No murmurs. No rubs were appreciated.S1, S2 normal. Distal pulses are palpable 2+ bilaterally. GI: Abdomen was soft. Epigastric tenderness and tenderness in the right upper quadrant. Non Distended. No pulsatile abdominal masses or bruits. No rebound. No guarding. Bowel sounds were present and normal. Muscle skeletal: Full range of motion of both the upper and lower extremities bilaterally.Normal muscle tone.No assymetrical calf tenderness or swelling. Skin: No petechia, no purpura. No lesions on the palms or the soles of the feet. No maculopapular rash. NEURO: Patient was alert, awake, orientated x3.No facial droop. Gait observed an d normal with no ataxia.Speech had regular rate and rhythm. No focal neurological deficits. Result Diagram: 04/14/19 1115 04/14/19 1115 Results 24 hrs Laboratory Tests Test 04/14/19 11:15 White Blood Count 8.6 10^3/ul Red Blood Count 5.57 10^6/ul Hemoglobin 14.9 g/dl Hematocrit 46.3 % Mean Corpuscular Volume 83.1 fl Mean Corpuscular Hemoglobin 26.8 pg Mean Corpuscular Hemoglobin Concent 32.2 g/dl Red Cell Distribution Width 12.9 % Platelet Count 291 10^3/UL Mean Platelet Volume 10.9 fl Immature Granulocytes % 0.200 % Neutrophils % 57.4 % Lymphocytes % 30.3 % Monocytes % 8.1 % Eosinophils % 3.1 % Basophils % 0.9 % Nucleated Red Blood Cells % 0.0 /100WBC Immature Granulocytes # 0.020 10^3/ul Neutrophils # 4.9 10^3/ul Lymphocytes # 2.6 10^3/ul Monocytes # 0.7 10^3/ul Eosinophils # 0.3 10^3/ul Basophils # 0.1 10^3/ul Nucleated Red Blood Cells # 0.0 10^3/ul Prothrombin Time 11.9 Sec Prothrombin Time Ratio 0.9 INR International Normalized Ratio 0.87 Activated Partial Thromboplast Time 28.6 Sec Sodium Level 142 mmol/L Potassium Level 4.0 mmol/L Chloride Level 104 mmol/L Carbon Dioxide Level 29 mmol/L Anion Gap 9 Blood Urea Nitrogen 16 mg/dl Creatinine 0.79 mg/dl Est Glomerular Filtrat Rate mL/min mL/min Glucose Level 76 mg/dl Calcium Level 10.2 mg/dl Total Bilirubin 0.7 mg/dl Direct Bilirubin 0.00 mg/dl Indirect Bilirubin 0.7 mg/dl Aspartate Amino Transf (AST/SGOT) 69 IU/L Alanine Aminotransferase (ALT/SGPT) 126 IU/L Alkaline Phosphatase 215 IU/L Total Protein 8.2 g/dl Albumin 4.7 g/dl Globulin 3.50 g/dl Albumin/Globulin Ratio 1.34 Current Medications Medications Dose Sig/Cari Start Time Status Last (Trade) Ordered Route PRN Stop Time Admin Dose Reason Admin 40 ml ONCE STAT 04/14/19 DC 04/14/19 Miscellaneous PO 11:03 04/14/19 11:36 Medication 11:05 (Gi Cocktail (2)) Belladonna/ 2 tab ONCE STAT 04/14/19 DC 04/14/19 Phenobarbital PO 11:03 04/14/19 11:36 () 11:05 Morphine 4 mg ONCE STAT 04/14/19 DC 8/2/19 Sulfate IV 11:04/14/19 11:37 (morphine) 11:27 Ondansetron 4 mg ONCE STAT 04/14/19 DC 04/14/19 HCl (Zofran IV 11:04/14/19 11:36 Inj) 11:27 Iohexol 30 ml STK-MED 04/14/19 DC 04/14/19 (Omnipaque ONCE .ROUTE 12:04/14/19 12:59 300mg/ ml) 12:34 Iohexol 30 ml STK-MED 04/14/19 DC 04/14/19 (Omnipaque ONCE .ROUTE 12:04/14/19 13:00 300mg/ ml) 12:34 Iohexol 30 ml STK-MED 04/14/19 DC 04/14/19 (Omnipaque ONCE .ROUTE 12:04/14/19 13:00 300mg/ ml) 12:34 Sodium 100 ml @ ud STK-MED 04/14/19 DC 04/14/19 Chloride ONCE .ROUTE 12:04/14/19 13:00 12:34 IV Flush 10 ml STK-MED 04/14/19 DC (NS 10 ml) ONCE .ROUTE 12:04/14/19 12:34 Procedures/MDM This patient presented to the emergency department with abdominal pain and was seen and evaluated by myself. My differential diagnosis included but was not limited to abdominal aortic aneurysm, appendicitis, pancreatitis, perforated peptic ulcer, perforated viscus, Boerhaaves syndrome or visceral pain such as diverticulitis, DKA, esophagitis, hepatitis or bowel obstruction. The patient was placed on a cardiac cath technician, continuous pulse oximetry, and IV access was established by nursing staff. Patient given intravenous morphine and Zofran. The patient had no evidence of sepsis. No leukocytosis. Patient had mild transaminitis with an elevation of alkaline phosphatase. I reviewed the ultrasound of the abdomen and there was no evidence of gallstones that have been taken on March 31, 2019. There were intrahepatic and extrahepatic bile ducts are not dilated and the CBD measured 0.4 cm. Therefore my clinical suspicion was low for cholecystitis or choledocholithiasis. I did obtain a CT scan of the abdomen today which did confirm the hepatic lesions. I informed the patient that this was concerning of hepatic malignancy. The CT scan reviewed by the radiologist indicate the followin. Extensive metastatic liver disease predominately involving right liver lobe. This is new compared to 2017 CT. 2. Moderate to severe narrowing of the intrahepatic IVC due to adjacent large caudate lobe mass. 3. Area of hypolucency in the bilateral iliac bones with question of metastatic lytic lesions. 4. Status post resection of the right colon with intact coloenteric anastomosis and no evidence of focal disease recurrence. 5. Mildly prominent loops of small bowel with air-fluid level without definite evidence of obstruction. I spoke with the [place] physician Dr. Cole who kindly stated he will arrange for immediate outpatient hematology oncology follow-up. The patient was discharged home with analgesic medication. The patient was discharged home in fair condition. They were instructed to return to the emergency department at any time if there was any worsening of their condition. The patient stated they would follow up with their PCP in the next 24-48 hours to initiate a suitable medication regimen under the care of their PCP as well as to allow their PCP to monitor any drug reactions. The patient was discharged home with prescriptions after they gave informed consent to the new medication. They were also fully informed by myself on the adverse effects and adverse drug interactions in order to provide adequate safeguards to prevent possible adverse reactions to medications. Critical Care: Time: 45 minutes Treatments/Evaluations: Close monitoring and treatment of unstable vital signs, cardiorespiratory, and neurologic status, while maintaining tight balance of fluid, respiratory, and cardiac interventions. Time does not include performing any of the above billable procedures. Departure Diagnosis: Primary Impression: Liver masses Additional Impression: Abdominal pain Abdominal location: epigastric Qualified Codes: R10.13 - Epigastric pain Condition: Fair CHI BLACKMON MD Apr 14, 2019 13:08
[2019-04-14 14:00] VITALS: BP 124/67; PULSE 58; RESP 16
== END 2019-04-14 14:00 | disposition home or self-care (01) ==
LOC: E/R 10:42
DX: R16.0 Hepatomegaly, not elsewhere classified (principal); I10 Essential (primary) hypertension; E11.9 Type 2 diabetes mellitus without complications; Z79.4 Long term (current) use of insulin
CPT/HCPCS: 74177; 80053; 85025; 85610; 85730; 96374; 96375; 99285; J2270; J2405; Q9967

== ENCOUNTER 2019-05-28 07:39 | Inpatient (IN) | payer BC ==
[~2019-05-28] VITALS: Ht 172.7 cm; Wt 72.0 kg
[~2019-05-28 07:39] MED LIST changes: +HYDR-3601 PO; -INSU200I SQ
[2019-05-28] MEDS ORDERED: morphine 2 MG INJ IV STA (09:59)
[2019-05-28] MEDS ORDERED: ONDANSETRON 4 MG INJ IV PRN ×2 (13:00→13:30)
[2019-05-28] MEDS ORDERED: ACETAMINOPHEN 325 MG TAB PO PRN ×2 (13:00→13:30)
[2019-05-28] MEDS ORDERED: MAGNESIUM HYDROXIDE 30ML CUP PO PRN (13:30)
[2019-05-28] MEDS ORDERED: BISACODYL (EC) 5 MG TAB PO PRN (13:30)
[2019-05-28] MEDS ORDERED: DOCUSATE SODIUM 100 MG CAP PO PRN (13:30)
[2019-05-28] MEDS ORDERED: BISACODYL 10 MG SUPP PR PRN (13:30)
[2019-05-28] MEDS ORDERED: HYDROCODONE/APAP (5/325) TAB PO PRN (13:30)
[2019-05-28] MEDS ORDERED: NACL 0.9% 3 ML SYG IV SCH (13:30)
[2019-05-28 14:47] VITALS: BP 143/72; PULSE 63; RESP 16
[2019-05-28 15:00] VITALS: Ht 172.7 cm; Wt 72.0 kg
[2019-05-28] MEDS: FAMOTIDINE 20 MG INJ IV SCH ×2 (16:03→20:18)
[2019-05-28] MEDS: SOD CHLORIDE 0.9% 1,000 ML IV SCH ×2 (16:03→23:04)
[2019-05-28] MEDS: INSULIN ASPART [NOVOLOG] 3 ML PEN SC SCH ×2 (17:39→20:18)
[2019-05-28 20:00] VITALS: BP 103/59; PULSE 74; RESP 18
[2019-05-28] MEDS: INSULIN GLARGINE [LANTus] (100 UNITS/ML) SYG SC SCH (20:16)
[2019-05-29] VITALS (14 sets, daily range): BP systolic 106–145; BP diastolic 60–82; PULSE 58–94; RESP 12–21
[2019-05-29] MEDS: ACCU-CHEK XX SCH (02:00)
[2019-05-29] MEDS: INSULIN ASPART [NOVOLOG] 3 ML PEN SC SCH ×5 (05:00→20:32)
[2019-05-29] MEDS: FAMOTIDINE 20 MG INJ IV SCH ×2 (09:04→20:30)
[2019-05-29] MEDS: SOD CHLORIDE 0.9% 1,000 ML IV SCH ×2 (09:04→18:11)
[2019-05-29] MEDS ORDERED: LIDOCAINE 1% (MPF) 5 ML VIAL ONE (11:13)
[2019-05-29] MEDS ORDERED: MIDAZOLAM 1 MG/ML 2 ML INJ ONE ×2 (11:14→15:08)
[2019-05-29] MEDS ORDERED: FENTAnyl 50 MCG/ML VIAL ONE ×2 (11:14→15:08)
[2019-05-29] MEDS: morphine 2 MG INJ IV PRN ×2 (12:52→19:37)
[2019-05-29] MEDS ORDERED: ROCURONIUM 50 MG INJ ONE (15:08)
[2019-05-29] MEDS ORDERED: GLYCOPYRROLATE 0.4 MG INJ ONE (15:08)
[2019-05-29] MEDS ORDERED: ONDANSETRON 4 MG INJ ONE (15:08)
[2019-05-29] MEDS ORDERED: DEXAMETHASONE 4 MG/ML 5 ML INJ ONE (15:08)
[2019-05-29] MEDS ORDERED: CEFAZOLIN 1 GM INJ ONE (15:08)
[2019-05-29] MEDS ORDERED: PROPOFOL 20 ML ONE (15:08)
[2019-05-29] MEDS ORDERED: NEOSTIGMINE 3 MG/3 ML SYRINGE ONE (15:08)
[2019-05-29] MEDS ORDERED: CIPROFLOXACIN 400MG/D5W 200 ML IVPB STA (15:13)
[2019-05-29] MEDS ORDERED: INDOMETHACIN 50 MG SUPP PR ONE (15:30)
[2019-05-29] MEDS ORDERED: SUGAMMADEX SODIUM 200 MG/2 ML VIAL IV ONE (16:21)
[2019-05-29] MEDS ORDERED: GLUCAGON 1 MG INJ IM PRN (17:30)
[2019-05-29] MEDS ORDERED: GLUCOSE GEL 15 GRAM TUBE PO PRN ×2 (17:30)
[2019-05-29] MEDS ORDERED: DEXTROSE 50% 50 ML SYRINGE IV PRN ×2 (17:30)
[2019-05-29] MEDS ORDERED: GLUCOSE GEL 15 GRAM TUBE BUCCAL PRN (17:30)
[2019-05-29] MEDS: INSULIN GLARGINE [LANTus] (100 UNITS/ML) SYG SC SCH (20:35)
[2019-05-30] MEDS: SOD CHLORIDE 0.9% 1,000 ML IV SCH ×3 (01:05→22:03)
[2019-05-30 01:51] VITALS: BP 124/63; PULSE 64; RESP 18
[2019-05-30] MEDS: ACCU-CHEK XX SCH (02:00)
[2019-05-30] MEDS: INSULIN ASPART [NOVOLOG] 3 ML PEN SC SCH ×4 (07:00→20:59)
[2019-05-30 08:03] VITALS: BP 138/69; PULSE 69; RESP 18
[2019-05-30] MEDS: FAMOTIDINE 20 MG INJ IV SCH ×2 (08:27→20:59)
[2019-05-30 14:47] VITALS: BP 121/72; PULSE 68; RESP 18
[2019-05-30] MEDS: morphine 2 MG INJ IV PRN (16:08)
[2019-05-30 19:46] VITALS: BP 122/63; PULSE 60; RESP 17
[2019-05-30] MEDS: INSULIN GLARGINE [LANTus] (100 UNITS/ML) SYG SC SCH (20:58)
[2019-05-31] MEDS: SOD CHLORIDE 0.9% 1,000 ML IV SCH ×2 (01:11→08:24)
[2019-05-31] MEDS: ACCU-CHEK XX SCH (01:15)
[2019-05-31 01:36] VITALS: BP 127/63; PULSE 63; RESP 18
[2019-05-31] MEDS: INSULIN ASPART [NOVOLOG] 3 ML PEN SC SCH ×3 (04:00→09:00)
[2019-05-31 08:12] VITALS: BP 127/72; PULSE 82; RESP 20
[2019-05-31] MEDS: FAMOTIDINE 20 MG INJ IV SCH (08:28)
[2019-05-31] MEDS ORDERED: INSULIN ASPART [NOVOLOG] 3 ML PEN SC SCH (11:30)
== END 2019-05-31 14:08 | disposition home health service (06) | DRG 435 ==
LOC: E/R 07:39 → 2NE 12:53
PROVIDERS: ADMIT Internal Medicine; ATTEND Internal Medicine
PROC: BF10YZZ Fluoroscopy of Bile Ducts using Other Contrast (ICD-10-PCS; 2019-05-29)
PROC: 0FB03ZX Excision of Liver, Percutaneous Approach, Diagnostic (ICD-10-PCS; 2019-05-29)
PROC: 0F798ZZ Dilation of Common Bile Duct, Via Natural or Artificial Opening Endoscopic (ICD-10-PCS; principal; 2019-05-29 15:00)
DX: C78.7 Secondary malignant neoplasm of liver and intrahepatic bile duct (principal); K83.1 Obstruction of bile duct; E11.9 Type 2 diabetes mellitus without complications; E78.5 Hyperlipidemia, unspecified; Z79.4 Long term (current) use of insulin; Z85.048 Personal history of other malignant neoplasm of rectum, rectosigmoid junction, and anus; Z90.49 Acquired absence of other specified parts of digestive tract
CPT/HCPCS: 36415; 74181; 74330; 76705; 77012; 80053; 80061; 80076; 81001; 81237; 81301; 82378; 82962; 83036; 83690; 83735; 84100; 85025; 85610; 85730; 86301; 88307; 88313; 88341; 88342; 93005; 96374; J0690; J0744; J1100; J1815; J2250; J2270; J2405; J2710; J3010; J7030